=== PATIENT | female | born 1955 | race African-American/Black ===

== ENCOUNTER 2018-04-14 14:23 | Inpatient (IN) | payer MEDICARE, MEDICAID ==
[~2018-04-14] VITALS: Ht 165.1 cm; Wt 68.0 kg
[2018-04-14 14:57] VITALS: BP 188/100
[2018-04-14] MEDS ORDERED: DIAZEPAM10 MG ORAL (15:21)
[2018-04-14] MEDS ORDERED: CYCLOBENZAPRINE10 MG ORAL (15:21)
[2018-04-14] MEDS ORDERED: CATAPRES0.1 MG ORAL (15:21)
[2018-04-14] MEDS ORDERED: ZOFRAN ODT8 MG ORAL (15:21)
[2018-04-14] MEDS ORDERED: CARAFATE1 G1 ORAL (15:21)
[2018-04-14] MEDS ORDERED: DICLOFENAC SODI25 GM MC (15:22)
[2018-04-14] MEDS ORDERED: AMLODIPINE BESY10 MG ORAL (15:22)
[2018-04-14] MEDS ORDERED: LORazepam 1mg tab ORAL ONE (15:30)
--- NOTE | 2018-04-14 15:35 | Emergency Room Report ---
History of Present Illness General Chief Complaint: General Complaint Source: Patient Present Illness HPI 62-year-old female with a history of hypertension, high cholesterol, COPD, presents with intermittent right-sided facial numbness that started Wednesday which was 2 days ago. She reports she is having right facial numbness again, and it's been more persistent since 10 AM. She denies fevers, falls, focal weakness, slurred speech, blurred vision, numbness anywhere else in her right face. Allergies: Coded Allergies: OLYA INHIBITORS (Verified Allergy, Unknown, 04/14/18) Patient History Past Medical History: see triage record Reviewed Nursing Documentation: PMH: Agreed; PSxH: Agreed Nursing Documentation-PMH Past Medical History: No History, Except For Hx Hypertension: Yes Hx COPD: Yes Review of Systems All Other Systems: negative except mentioned in HPI Physical Exam Vital Signs Date Time Temp Pulse Resp B/P (MAP) Pulse Ox O2 Delivery O2 Flow Rate FiO2 04/14/18 14:40 98.1 70 14 201/101 100 Room Air Sp02 EP Interpretation: reviewed, normal General Appearance: no apparent distress, alert, non-toxic Head: normocephalic Eyes: bilateral eye normal inspection, bilateral eye PERRL, bilateral eye EOMI ENT: normal ENT inspection, hearing grossly normal, normal pharynx, no angioedema, normal voice, moist mucus membranes Neck: normal inspection, full range of motion, supple, supple/symm/no masses Respiratory: chest non-tender, lungs clear, normal breath sounds, no rhonchi, no respiratory distress, no retraction, no accessory muscle use, no wheezing, chest symmetrical, palpation of chest normal Cardiovascular #1: normal peripheral pulses, regular rate, rhythm, no edema, no gallop, no JVD, no murmur, no rub Cardiovascular #2: 2+ radial (R), 2+ radial (L) Gastrointestinal: normal inspection, non tender, soft, no mass, no guarding, no rebound Rectal: deferred Genitourinary: normal inspection, no CVA tenderness Musculoskeletal: back normal, gait/station normal, normal range of motion, non- tender, no calf tenderness Neurologic: alert, responsive, senior staff consultant III-XII nml as tested - Patient reports decreased sensation subjectively on right face, but no facial droop is notable and she has sensation intact to light touch over the face bilaterally, motor strength/tone normal, sensory intact, speech normal Psychiatric: judgement/insight normal, memory normal, mood/affect normal Skin: normal color, no rash, warm/dry, normal turgor Lymphatic: no adenopathy Medical Decision Making Diagnostic Impression: Primary Impression: TIA (transient ischemic attack) ER Course Patient found to be hypertensive, was given a milligram of Ativan she was intermittent in the agitated, this improved her blood pressure greatly, she was given aspirin, her exam is fairly unremarkable with a stroke scale of 0, but with subjective numbness to right face, but is going on intermittent since Wednesday, patient will be admitted for possible TIA. Given ASA 325. EKG Diagnostic Results EKG Time: 14:53 EP Interpretation: No ST segment changes or T wave inversion Rate: normal Rhythm: NSR ST Segments: no acute changes ASA given to the pt in ED: Yes Rhythm Strip Diag. Results Rhythm Strip Time: 15:33 EP Interpretation: yes Rate: 64 Rhythm: NSR, no PVC's, no ectopy Chest X-Ray Diagnostic Results Chest X-Ray Diagnostic Results : Chest X-Ray Ordered: Yes # of Views/Limited/Complete: 1 View Indication: Other - tia EP Interpretation: Yes Interpretation: no consolidation, no effusion, no acute cardiopulmonary disease Impression: No acute disease Electronically Signed by: Ashley Nick MD Other X-Ray Diagnostic Results Other X-Ray Diagnostic Results : X-Ray ordered: cxr CT/MRI/US Diagnostic Results CT/MRI/US Diagnostic Results : Imaging Test Ordered: ct head Impression No acute disease Reevaluation Time: 16:09 Last Vital Signs Date Time Temp Pulse Resp B/P (MAP) Pulse Ox O2 Delivery O2 Flow Rate FiO2 04/14/18 14:57 70 14 Room Air 04/14/18 14:57 98.1 188/100 100 Status: improved Disposition: ADMITTED INPATIENT Admit Decision Time: 16:10 Condition: Stable ASHLEY NICK M.D Apr 14, 2018 15:35
[2018-04-14 15:37] LABS: APPEARANCE,URINE CLEAR; BILIRUBIN, URINE NEGATIVE (NEGATIVE); COLOR,URINE PALE YELLOW; GLUCOSE, URINE (UA) NEGATIVE (NEGATIVE); KETONES,URINE NEGATIVE (NEGATIVE); LEUKOCYTE ESTERASE ,URINE NEGATIVE (NEGATIVE); NITRITE,URINE NEGATIVE (NEGATIVE); PH,URINE 7 (4.5-8.0); PROTEIN,URINE NEGATIVE (NEGATIVE); UROBILINOGEN,URINE NORMAL MG/DL (0.0-1.0)
[2018-04-14 15:39] LABS: BASOPHILS % (AUTO) 1.3 % (0.0-2.0); EOSINOPHILS % (AUTO) 6.6 % (0.0-3.0); HEMATOCRIT 35.4 % (37.0-47.0); HEMOGLOBIN 12.5 G/DL (12.0-16.0); LYMPHOCYTES % (AUTO) 45.1 % (20.0-45.0); MEAN CORPUSCULAR VOLUME 79 FL (80-99); MONOCYTES % (AUTO) 10.2 % (1.0-10.0); NEUTROPHILS % (AUTO) 36.8 % (45.0-75.0); PLATELET COUNT 251 K/UL (150-450); RED BLOOD COUNT 4.48 M/UL (4.20-5.40); RED CELL DISTRIBUTION WIDTH 11.8 % (11.6-14.8); WHITE BLOOD COUNT 5.2 K/UL (4.8-10.8)
[2018-04-14 15:49] LABS: ANION GAP 8 mmol/L (5-15); BLOOD UREA NITROGEN 17 mg/dL (7-18); CALCIUM 9.5 MG/DL (8.5-10.1); CARBON DIOXIDE 29 MMOL/L (21-32); CHLORIDE 105 MMOL/L (98-107); CREATININE 0.9 MG/DL (0.55-1.30); POTASSIUM 3.5 MMOL/L (3.5-5.1); SODIUM 142 MMOL/L (136-145)
[2018-04-14 15:55] LABS: ALANINE AMINOTRANSFERASE 18 U/L (12-78); ALBUMIN 3.8 G/DL (3.4-5.0); ALBUMIN/GLOBULIN RATIO 0.8 (1.0-2.7); ALKALINE PHOSPHATASE 99 U/L (46-116); ASPARTATE AMINO TRANSFERASE 23 U/L (15-37); BILIRUBIN,TOTAL 0.2 MG/DL (0.2-1.0); CHOLESTEROL 198 MG/DL (< 200); HDL CHOLESTEROL 54 MG/DL (40-60); TRIGLYCERIDES 119 MG/DL (30-150)
--- NOTE | 2018-04-14 16:02 | Diagnostic Imaging Report ---
Indication: Right-sided facial numbness for 2 days, worse this morning Technique: Continuous helical CT scanning of the head was performed without intravenous contrast material. Axial and coronal 5 mm sections were generated. Radiation dose was minimized using automated exposure control Dose: Total Dose Length Product - DLP 1302.[address] Dose Index - CTDIvol(s) 70.38 mGy. Comparison: none Findings: The ventricular system is normal in size and configuration. There is no shift of midline structures. No abnormal extra-axial fluid collections are noted. There is no evidence of intracerebral bleeding. Small lacunar infarcts versus symmetric foci of periventricular deep white matter low-attenuation are seen in the bilateral centrum anterior tran radiata. Impression: Mild chronic deep white matter ischemic changes, as described Negative for acute intracranial bleed or mass effect. The CT scanner at [facility] is accredited by the [employer] and the scans are performed using protocols designed to limit radiation exposure to as low as reasonably achievable to attain images of sufficient resolution adequate for diagnostic evaluation.
--- NOTE | 2018-04-14 17:23 | Diagnostic Imaging Report ---
Indication: Chest pain Technique: One view of the chest Comparison: 06/07/2005 Findings: Elongated calcified aorta. Heart size is borderline enlarged. Atelectasis is seen in the left lung base. Impression: Left basilar atelectasis. No acute process
[2018-04-14 18:15] VITALS: BP 156/97
[2018-04-14] MEDS ORDERED: LUBRICANT 0.5-015 ML OP (18:39)
[2018-04-14] MEDS ORDERED: TRAMADOL HCL50 MG ORAL (18:39)
[2018-04-14] MEDS ORDERED: ATENOLOL-CHLOR1 EAC1 ORAL (18:39)
[2018-04-14] MEDS ORDERED: ATENOLOL25 MG ORAL (18:39)
[2018-04-14] MEDS ORDERED: NORCO 10-325 T1 EACH ORAL (18:39)
[2018-04-14] MEDS ORDERED: PENNSAID112 GM TP (18:39)
[2018-04-14] MEDS ORDERED: SYMBICORT 80-10.2 G1 IH (18:39)
[2018-04-14 20:20] VITALS: BP 154/71
[2018-04-14 20:30] VITALS: BP 144/96
[2018-04-14] MEDS ORDERED: Gadavist 7.5mMol/7.5ml vial IV PRN (22:15)
[2018-04-14] MEDS ORDERED: Atenolol 25mg tab ORAL ONE (22:15)
[2018-04-14] MEDS ORDERED: traMADol 50mg tab ORAL PRN (22:15)
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
[2018-04-14] MEDS: Aspirin EC 81mg tab ORAL SCH (23:29)
[2018-04-15] VITALS (7 sets, daily range): BP systolic 96–168; BP diastolic 61–97
[2018-04-15] MEDS: NS w/KCl 20mEq 1,000 ML IV SCH ×3 (00:12→18:30)
[2018-04-15] MEDS: HYDROcodone/Acetamin 10/325 tab ORAL PRN ×3 (02:18→17:23)
[2018-04-15] MEDS: Aspirin EC 81mg tab ORAL SCH (08:34)
[2018-04-15] MEDS ORDERED: Atenolol 25mg tab ORAL SCH (09:00)
[2018-04-15 09:30] LABS: BASOPHILS % (AUTO) 1.1 % (0.0-2.0); EOSINOPHILS % (AUTO) 6.9 % (0.0-3.0); HEMATOCRIT 37.8 % (37.0-47.0); HEMOGLOBIN 12.9 G/DL (12.0-16.0); LYMPHOCYTES % (AUTO) 42.7 % (20.0-45.0); MEAN CORPUSCULAR VOLUME 81 FL (80-99); MONOCYTES % (AUTO) 9.6 % (1.0-10.0); NEUTROPHILS % (AUTO) 39.7 % (45.0-75.0); PLATELET COUNT 250 K/UL (150-450); RED BLOOD COUNT 4.67 M/UL (4.20-5.40)
[2018-04-15 09:48] LABS: ALANINE AMINOTRANSFERASE 18 U/L (12-78); ALBUMIN 3.6 G/DL (3.4-5.0); ALBUMIN/GLOBULIN RATIO 0.8 (1.0-2.7); ALKALINE PHOSPHATASE 92 U/L (46-116); ANION GAP 9 mmol/L (5-15); ASPARTATE AMINO TRANSFERASE 21 U/L (15-37); BILIRUBIN,TOTAL 0.4 MG/DL (0.2-1.0); BLOOD UREA NITROGEN 14 mg/dL (7-18); CALCIUM 9.3 MG/DL (8.5-10.1); CARBON DIOXIDE 26 MMOL/L (21-32); CHLORIDE 105 MMOL/L (98-107); CREATININE 0.7 MG/DL (0.55-1.30); POTASSIUM 3.7 MMOL/L (3.5-5.1); SODIUM 140 MMOL/L (136-145)
--- NOTE | 2018-04-15 11:31 | Diagnostic Imaging Report ---
Indication: Right-sided facial numbness, bilateral hearing loss Technique: sagittal T1 fast spin echo, axial T1 and T2 FLAIR PROPELLER, axial T2 FS PROPELLER, T2* GRE, axial diffusion weighted images, post contrast axial and coronal T1 FLAIR PROPELLER images. ADC and exponential ADC maps generated Comparison: none Findings: . No abnormal areas of restricted diffusion to suggest acute infarction. No acute hemorrhage or edema. No mass effect nor midline shift. No abnormal contrast enhancement. Normal size ventricles and extra axial CSF spaces. No unusual contrast enhancement. There are small bilateral basal ganglia lacunar infarcts noted. The vascular flow voids are preserved.. Visualized orbits and sinuses are unremarkable. . Impression: Small old bilateral basal ganglia lacunar infarcts Negative for acute intracranial bleed, mass effect, contrast enhancement, or infarct
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
[2018-04-15] MEDS ORDERED: traMADol 50mg tab ORAL PRN (18:30)
[2018-04-15] MEDS ORDERED: Ondansetron ODT 8mg tab ORAL PRN (19:00)
[2018-04-15] MEDS: Heparin 5000 units/ml inj SUBQ SCH ×2 (20:35→20:41)
[2018-04-15] MEDS ORDERED: Heparin 5000 units/ml inj SUBQ SCH (21:00)
[2018-04-15] MEDS ORDERED: Gadavist 7.5mMol/7.5ml vial IV PRN (22:15)
[2018-04-16] VITALS: BP 138/82
--- NOTE | 2018-04-16 00:15 | Progress Note ---
CARDIOLOGY PROGRESS NOTE DATE: 04/15/2018 SUBJECTIVE: The patient's condition remains unchanged. She still has recurring numbness and tingling of her right facies. She has no difficulty swallowing. No difficulty with speech and no focal weakness. Monitored rhythm is sinus. OBJECTIVE: VITAL SIGNS: Blood pressure 155/97 with a single low range of 96/61 recorded, heart rate 57 to 83, respiratory rate 20, and afebrile. HEENT: She has no facial asymmetry. No motor deficits. Speech fluent. NECK: Supple. No bruits. LUNGS: Clear. CARDIAC: Regular. Normal S1, S2 with a fourth heart sound. ABDOMEN: Soft. EXTREMITIES: No edema. IMAGING: MRI of the brain revealed small old bilateral basal ganglia infarct, but no acute process. LABORATORY DATA: Labs noted. White count 5, hemoglobin 12.9. Folate 7.5, B12 749. TSH 0.279. Chemistry panel normal. IMPRESSION: 1. Right facial numbness may be due to acute neuropathic process involving the facial nerve. 2. Cerebrovascular disease with prior cerebrovascular accident. 3. Labile blood pressure with hypertensive heart disease. 4. Type 2 diabetes mellitus. 5. Hyperlipidemia. PLAN: 1. Anti-platelet therapy. 2. Followup carotid duplex study. 3. Optimize blood pressure control. 4. Consider re-attempted statin therapy, although it was not tolerated in the past. 5. Neuro checks. Kapil Conroy M.D. DR: BERNADINE JOB#: [id number] CC:
[2018-04-16] MEDS: HYDROcodone/Acetamin 10/325 tab ORAL PRN ×2 (02:44→11:02)
[2018-04-16 04:00] VITALS: BP 131/92
[2018-04-16] MEDS: NS w/KCl 20mEq 1,000 ML IV SCH (07:50)
[2018-04-16] MEDS ORDERED: NORVASC10 MG ORAL (07:58)
[2018-04-16] MEDS ORDERED: FAMOTIDINE20 MG ORAL (07:58)
[2018-04-16] MEDS ORDERED: ATENOLOL25 MG ORAL (07:58)
[2018-04-16] MEDS ORDERED: ASPIRIN EC81 MG ORAL (07:58)
[2018-04-16 08:00] VITALS: BP 151/90
[2018-04-16] MEDS ORDERED: Atenolol 25mg tab ORAL SCH (09:00)
[2018-04-16] MEDS: Heparin 5000 units/ml inj SUBQ SCH (09:00)
[2018-04-16] MEDS ORDERED: Aspirin EC 81mg tab ORAL SCH (09:00)
--- NOTE | 2018-04-16 09:00 | Discharge Summary ---
DATE OF ADMISSION: 04/14/2018 DATE OF DISCHARGE: 04/16/2018 ADMITTING DIAGNOSES: 1. Transient ischemic attack. 2. History of hypertension. 3. Chronic obstructive pulmonary disease. 4. History of anxiety. 5. History of chronic lower back pain. DISCHARGE DIAGNOSES: 1. Transient ischemic attack. 2. History of hypertension. 3. Chronic obstructive pulmonary disease. 4. History of anxiety. 5. History of chronic lower back pain. HOSPITAL COURSE: The patient is a pleasant 62-year-old female who presented with complaints of intermittent episodes of right-sided facial numbness. She was admitted for possible TIA. Her CT scan was negative. She did have an MRI that showed old strokes, but nothing acute. She was placed on antiplatelet therapy. She was noted to have elevated LDL, was placed on pravastatin. She does have a history of intolerance to statins, but we will re-attempt statin treatment again with monitoring for symptoms and a CK level in the office. The patient also had an echo, which showed no evidence of any thrombus and a carotid duplex showed no disease. The patient will be discharged to follow up in several days in the office. DISCHARGE MEDICATIONS: Please see discharge list for discharge medications. DIET: Cardiac diet. ACTIVITY: Ad-rina. Damian Morton M.D. DR: AILIN JOB#: [id number] CC:
[2018-04-16 11:52] VITALS: BP 168/91
--- NOTE | 2018-04-16 14:41 | Cardiology Report ---
APPROVED REPORT EXAM: Two-dimensional and M-mode echocardiogram with Doppler and color Doppler. INDICATION CVA M-Mode DIMENSIONS IVSd2.0 (0.7-1.1cm)Left Atrium (MM)4.0 (1.6-4.0cm) LVDd3.0 (3.5-5.6cm)Aortic Root3.2 (2.0-3.7cm) PWd1.7 (0.7-1.1cm)Aortic Cusp Exc.1.7 (1.5-2.0cm) LVDs1.5 (2.5-4.0cm) PWs2.3 cm Normal left ventricular chamber size, systolic function and wall motion. Left ventricular ejection fraction estimated to be 60 %. Moderate left ventricular hypertrophy. No evidence of pericardial effusion. All other cardiac chamber sizes are within normal limits. Mild focal aortic valve sclerosis with adequate cusp excursion. Thickened mitral valve leaflets with normal excursion. Mild mitral annulus and aortic root calcification. Normal pulmonic valve structure. Normal tricuspid valve structure. IVC dilated at 2.2 cm with physiological collapse. A color flow and spectral Doppler study was performed and revealed: Mild aortic insufficiency. Mild mitral regurgitation. Mitral diastolic velocities suggest mild left ventricular diastolic dysfunction (Grade I). Trace tricuspid regurgitation. Tricuspid systolic velocities suggests peak right ventricular systolic pressure of 31 mmHg. Trace pulmonic regurgitation present.
[2018-04-16 15:17] VITALS: BP 150/91
--- NOTE | 2018-04-16 22:15 | Progress Note ---
DATE: 04/16/2018 CARDIOLOGY PROGRESS NOTE SUBJECTIVE: The patient continues to feel better and she has minimal numbness on her right cheek. No motor deficit. No difficulty chewing, swallowing, or speaking. Her echocardiogram revealed mild degenerative valve disease with regurgitation, but normal ejection fraction and no thrombus. Carotid duplex revealed no flow-limiting disease of concern and her MRI as noted revealed old lacunar infarcts. Her laboratories have been notable for an elevated LDL, but the patient is concerned about resuming statin drugs that she was intolerant to in the past and will reconsider this in the future. OBJECTIVE: VITAL SIGNS: Blood pressure 150/91, heart rate 65, respiratory rate 18, and afebrile. Earlier blood pressure was up to 175/101. LUNGS: Clear. CARDIAC: Regular. Normal S1, S2 with a fourth heart sound. ABDOMEN: Soft. EXTREMITIES: No edema. IMPRESSION: 1. Facial numbness. 2. Cerebrovascular disease, possible acute subcortical infarct. 3. Hypertensive heart disease with labile blood pressure. 4. Hyperlipidemia. 5. Folate deficiency. PLAN: 1. Outpatient followup. 2. Continued anti-platelet therapy. 3. Folate replacement. 4. Low-fat diet. 5. Consideration for statin drug. 6. Continued up titration of antihypertensive as outpatient based on clinical parameters. 7. The patient is advised to return to the hospital urgently for new neurologic deficits. Kapil Conroy M.D. DR: SONIA JOB#: [id number] CC:
--- NOTE | 2018-04-18 13:10 | Diagnostic Imaging Report ---
APPROVED REPORT CPT Code: 17052 Vascular Symptoms CVA/TIA: CAROTID (BILATERAL) - Imaging reveals no significant plaque within the right and left extracranial carotid arteries. The Doppler spectral flow analysis is within normal limits throughout the extracranial carotid arteries bilaterally. VERTEBRAL- The vertebral arteries are within normal limits.
== END 2018-04-16 15:50 | disposition home health service (06) | DRG 69 ==
LOC: EMR 15:50 → 2E 16:06 → EDBEDREQ 19:11 → 4E 04-15 18:03
DX: G45.9 Transient cerebral ischemic attack, unspecified (principal); I16.0 Hypertensive urgency; I11.9 Hypertensive heart disease without heart failure; J44.9 Chronic obstructive pulmonary disease, unspecified; F41.9 Anxiety disorder, unspecified; G89.29 Other chronic pain; M54.5 Low back pain; M19.90 Unspecified osteoarthritis, unspecified site; E78.5 Hyperlipidemia, unspecified; Z87.891 Personal history of nicotine dependence; Z88.8 Allergy status to other drugs, medicaments and biological substances; I67.2 Cerebral atherosclerosis; G51.9 Disorder of facial nerve, unspecified; E11.9 Type 2 diabetes mellitus without complications; E53.8 Deficiency of other specified B group vitamins
CPT/HCPCS: 36415; 70450; 70553; 71045; 80053; 80061; 81003; 82607; 82746; 84443; 84484; 85025; 85610; 85730; 93005; 93306; 93880; 94640; 94664; 99284; A9585

== ENCOUNTER 2018-07-23 13:26 | Emergency (ER) | payer MEDICARE, MEDICAID ==
[~2018-07-23] VITALS: Ht 165.1 cm; Wt 72.6 kg
[~2018-07-23 13:26] MED LIST: AMLODIPINE BESY10 MG ORAL; ASPIRIN EC81 MG ORAL; ATENOLOL-CHLOR1 EAC1 ORAL; ATENOLOL25 MG ORAL; CARAFATE1 G1 ORAL; CATAPRES0.1 MG ORAL; CYCLOBENZAPRINE10 MG ORAL; DIAZEPAM10 MG ORAL; DICLOFENAC SODI25 GM MC; FAMOTIDINE20 MG ORAL; LUBRICANT 0.5-015 ML OP; NORCO 10-325 T1 EACH ORAL; NORVASC10 MG ORAL; PENNSAID112 GM TP; SYMBICORT 80-10.2 G1 IH; TRAMADOL HCL50 MG ORAL; ZOFRAN ODT8 MG ORAL
--- NOTE | 2018-07-23 14:14 | Emergency Room Report ---
History of Present Illness General Chief Complaint: Laceration Present Illness HPI 62-year-old female patient presents the ER complaining of laceration on left thumb. Reports he is right-hand dominant. Patient states that she was using a box person to open a box when actually slipped and cut her left hand. Denies taking any blood thinner medications other than aspirin. Denies syncope or dizziness. States bleeding well controlled at this time with gauze however was "bleeding a lot initially". Denies loss of range of motion. Denies numbness or tingling. Denies other aggravating or relieving factors. Reports she is up- to-date on her tetanus vaccinations. Allergies: Coded Allergies: OLYA INHIBITORS (Verified Allergy, Unknown, 04/14/18) Swelling in the toungue, mouth Patient History Past Medical History: see triage record Last Menstrual Period: N/A Reviewed Nursing Documentation: PMH: Agreed; PSxH: Agreed Nursing Documentation-PMH Hx Hypertension: Yes Hx COPD: Yes Review of Systems All Other Systems: negative except mentioned in HPI Physical Exam Vital Signs Date Time Temp Pulse Resp B/P (MAP) Pulse Ox O2 Delivery O2 Flow Rate FiO2 07/23/18 14:07 98.2 58 18 149/83 100 Room Air Sp02 EP Interpretation: reviewed, normal General Appearance: well appearing, no apparent distress, alert, GCS 15, non- toxic Head: normocephalic, atraumatic Eyes: bilateral eye normal inspection, bilateral eye PERRL ENT: hearing grossly normal, normal pharynx, no angioedema, normal voice, uvula midline, moist mucus membranes Neck: full range of motion Respiratory: lungs clear, normal breath sounds, no rhonchi, no respiratory distress, no accessory muscle use, no wheezing, speaking full sentences Cardiovascular #1: regular rate, rhythm, no edema Cardiovascular #2: 2+ radial (R), 2+ radial (L) Musculoskeletal: back normal, digits/nails normal, gait/station normal, normal range of motion, non-tender, other - No snuffbox tenderness, NVI, no tendon exposure, Neurologic: alert, oriented x3, responsive, motor strength/tone normal, sensory intact Skin: laceration - Left thumb: 2 cm superficial linear laceration, wound edges well approximated, bleeding well controlled, no surrounding erythema or edema, no pulsating blood Procedures Laceration/Wound Repair Laceration/Wound Repair : Consent: Verbal Wound Location: upper extremity - Left thumb Wound's Depth, Shape: superficial, linear Wound Length (cm): 1 Wound Explored: contaminated Irrigated w/ Saline (ccs): 10 Betadine Prep?: Yes Wound Debrided: extensive Wound Repaired With: Dermabond Layer Closure?: No Sterile Dressing Applied?: No Splint Applied?: No Sling Applied?: No Patient Tolerated: Well Complications: None Medical Decision Making PA Attestation Dr. Dyson is my supervising Physician whom patient management has been discussed with. Diagnostic Impression: Primary Impression: Laceration ER Course Pt presents to ED c/o laceration on left thumb. DDX considered but are not limited to laceration, abrasion, contusion, cellulitis. VITAL SIGNS are WNL, patient is afebrile ED INTERVENTIONS: Wound was cleaned and irrigated using copius normal saline. Laceration repaired using Dermabond. See procedure note. Patient reports understanding and agreement to treatment plan. Keep wound clean and dry. Followup with PCP in 2-3 days for wound check. ER precautions given. No surrounding erythema or edema, wound well irrigated with copious amounts normal saline, low suspicion for infection, does not require oral antibiotics at this time. Advised patient on use of topical antibiotics. Return to ER if signs of infection present.. DISCHARGE: Rx provided for Bacitracin Rx provided for Tylenol At this time pt is stable for d/c to home. Patient resting comfortably, in no acute distress, nontoxic appearing, talking without difficulty. Will provide with patient care instructions and any necessary prescriptions. Patient to take medication as instructed. Care plan and follow-up instructions provided. Work note provided to patient. Patient questions asked and answered. Patient instructed to follow-up with primary care provider for wound check and suture removal. ER precautions given. Patient instructed to return to ER immediately for any new or worsening of symptoms. - Please note that this Emergency Department Report was dictated using eSeekerscoll[employer] mechanic technology software, occasionally this can lead to erroneous entry secondary to interpretation by the dictation equipment. Last Vital Signs Date Time Temp Pulse Resp B/P (MAP) Pulse Ox O2 Delivery O2 Flow Rate FiO2 07/23/18 14:07 98.2 58 18 149/83 100 Room Air Status: improved Disposition: HOME, SELF-CARE Condition: Stable Scripts Acetaminophen* (TYLENOL EXTRA STRENGTH*) 500 Mg Tablet 500 MG ORAL Q8H PRN for Prn Headache/Temp > 101, #30 TAB 0 Refills Prov: Herb Mayen 07/23/18 Bacitracin/Polymyxin B Sulfate (BACITRACIN-POLYMYXIN OINTMENT) 28.35 Gm Oint...g. 1 APPLIC TP BID, #28 GM Prov: Herb Mayen 07/23/18 Patient Instructions: Nonsutured Laceration Care Additional Instructions: Patient instructed to follow-up with primary care provider in 2-3 days for wound check Apply bacitracin to help reduce appearance of scar once Dermabond has worn off. Take medications as directed. Keep wound clean and dry. Patient questions asked and answered. ER precautions given, patient instructed to return to ER immediately for any new or worsening of symptoms. Hreb Mayen Jul 23, 2018 14:14
[2018-07-23 14:27] VITALS: BP 135/79
--- NOTE | 2018-07-23 14:28 | NUR ---
ED Nurse Note: Pt came in c/o laceration on L thumb, got cut on tape deck installer prior to arrival. Pain 5/10 darlene. no active bleeding. Aox4, VSS. Will cont to monitor.
[2018-07-23] MEDS ORDERED: TYLENOL EXTRA500 MG ORAL (14:47)
[2018-07-23] MEDS ORDERED: BACITRACIN-P28.35 GM TP (14:47)
--- NOTE | 2018-07-23 14:58 | NUR ---
ED Nurse Note: PT A/O X4, STATED UNDERSTANDING OF DC INSTRUCTIONS AND EDUCATION ON NEW MEDICATIONS. AMBULATES WITH STEADY GAIT, REPORTS NO PAIN AT THIS TIME.
== END 2018-07-23 15:00 | disposition home or self-care (01) ==
LOC: EMR 14:21
DX: S61.012A Laceration without foreign body of left thumb without damage to nail, initial encounter (principal); I10 Essential (primary) hypertension; J44.9 Chronic obstructive pulmonary disease, unspecified; W26.8XXA Contact with other sharp object(s), not elsewhere classified, initial encounter
CPT/HCPCS: 99282

== ENCOUNTER 2018-07-27 10:03 | Outpatient (CLI) | payer MEDICARE, MEDICAID ==
[~2018-07-27 10:03] MED LIST changes: +BACITRACIN-P28.35 GM TP; +TYLENOL EXTRA500 MG ORAL
--- NOTE | 2018-07-28 09:32 | Diagnostic Imaging Report ---
Indication: Knee pain Technique: 3 views of the left knee Comparison: None Findings: There is a small superior pole patellar osteophyte. There are small medial and lateral osteophytes. No acute fractures. No dislocations. The joint spaces are preserved. Impression: No acute process
--- NOTE | 2018-07-28 09:32 | Diagnostic Imaging Report ---
Indication: Back pain Technique: 3 views of the lumbar spine Comparison: None Findings: There is slight anterior height loss of the L5 vertebral body. Remaining vertebral body heights are preserved. No acute fractures otherwise. There is degenerative disc narrowing at L2-3, L3-4, and L5-S1. There is mild lumbar dextro scoliotic deformity. Bony alignment is otherwise normal. The pedicles are intact. Sacral arches are preserved. Sacroiliac joint spaces are preserved. There are cholecystectomy clips. Included extra spinal soft tissues are unremarkable Impression: Slight height loss of the L5 vertebral body. Suspect on the basis of degenerative remodeling, mild mild compression fracture deformity, acuity indeterminate, also possible. Consider MRI to better characterize if clinically relevant No other acute bony trauma Degenerative changes as described above
--- NOTE | 2018-07-28 09:32 | Diagnostic Imaging Report ---
Indication: Pain Technique: 3 views of the left ankle Comparison: none Findings: Anterior surgical plate and screws are seen reducing old healed distal tibial fracture. Hardware appears to be intact an well-positioned.. No acute fractures. No dislocations. There are vascular calcifications noted. Impression: Postsurgical and posttraumatic changes, as described No acute bony trauma
--- NOTE | 2018-07-28 09:32 | Diagnostic Imaging Report ---
Indication: Right hip pain Technique: 2 views of the right hip Comparison: none Findings: There are mild degenerative changes of the right hip joint; the joint spaces are largely preserved, but there is considerable proliferative change. No acute fractures. No dislocations. The bones are osteoporotic. Soft tissues are unremarkable Impression: Mild degenerative changes. No acute bony trauma
--- NOTE | 2018-07-28 09:32 | Diagnostic Imaging Report ---
Indication: Right ankle pain Technique: 3 views of the ankle Comparison: none Findings: Bones are osteoporotic. No acute fractures. No dislocations. Large ossific opacity projects posterior to the calcaneus on the lateral view, May the sequela of prior injury or, more likely, a very large accessory ossicle. There is a small plantar spur. There is mild degenerative narrowing of the ankle joint. Impression: No acute bony trauma Findings as noted
--- NOTE | 2018-07-28 09:32 | Diagnostic Imaging Report ---
Indication: Pain Technique: 3 views right hand Comparison: none Findings: No definite acute fractures. No dislocations. There are fairly extensive degenerative changes of the distal interphalangeal joints, the first interphalangeal joint, the first carpometacarpal joint and lateral intercarpal joint. Bones appear osteoporotic. Impression: Degenerative changes as described No acute bony trauma
--- NOTE | 2018-07-28 09:32 | Diagnostic Imaging Report ---
Indication: Right knee pain Technique: 3 views of the right knee Comparison: None Findings: There is a small superior pole patellar osteophyte and a small medial osteophytes. No acute fractures. No dislocations. Joint spaces are preserved. No suprapatellar effusion. Impression: Minimal degenerative changes No acute bony trauma
== END 2018-07-27 12:03 | disposition home or self-care (01) ==
LOC: RAD 10:03
DX: M25.562 Pain in left knee (principal); M25.571 Pain in right ankle and joints of right foot; M25.541 Pain in joints of right hand; M25.551 Pain in right hip; M25.561 Pain in right knee; M54.9 Dorsalgia, unspecified
CPT/HCPCS: 72020

== ENCOUNTER 2019-03-07 08:18 | Outpatient (CLI) | payer MEDICARE, MEDICAID | END 2019-03-07 10:18 | disposition home or self-care (01) | LOC: CAT 08:18 | DX: R10.9 Unspecified abdominal pain (principal); R10.2 Pelvic and perineal pain | CPT/HCPCS: 74176 ==

== ENCOUNTER → 2019-03-09 | Outpatient (CLI) | payer MEDICARE, MEDICAID | END | disposition home or self-care (01) | LOC: CAT 08:37 | DX: R10.9 Unspecified abdominal pain (principal); R10.2 Pelvic and perineal pain ==

== ENCOUNTER → 2019-04-06 | Outpatient (CLI) | payer MEDICARE, MEDICAID ==
--- NOTE | 2019-04-06 13:16 | Diagnostic Imaging Report ---
Indication: Cough Comparison: 04/14/2018 2 views of the chest obtained. Findings: No definite infiltrate or pulmonary vascular congestion identified. The heart is relatively normal in size. The aorta is mildly enlarged consistent with atherosclerotic vascular disease. The bones are osteopenic. Impression: No acute disease
== END | disposition home or self-care (01) ==
LOC: RAD 07:37
DX: Z01.818 Encounter for other preprocedural examination (principal); R05 Cough; M85.80 Other specified disorders of bone density and structure, unspecified site
CPT/HCPCS: 71046

== ENCOUNTER 2019-07-29 07:08 | Emergency (ER) | payer MEDICARE, MEDICAID ==
[~2019-07-29] VITALS: Ht 165.1 cm; Wt 72.6 kg
[2019-07-29] MEDS ORDERED: DiphenhydrAMINE 50mg/ml Inj IM ONE (07:30)
--- NOTE | 2019-07-29 07:33 | Emergency Room Report ---
History of Present Illness General Chief Complaint: General Complaint Source: Patient Present Illness HPI Patient is a 63-year-old female brought in self after increased generalized body discomfort. She reports having taken some new medication which had caused her discomfort. She reports having pain throughout her body. Reports having generalized agitation. Reports taking pain medication regularly. Denies any recent trauma. Had not been vomiting or having diarrhea. COVID-19 risk:Travel to affect: No Allergies: Coded Allergies: OLYA INHIBITORS (Verified Allergy, Unknown, 04/14/18) Swelling in the toungue, mouth Patient History Past Medical History: see triage record Reviewed Nursing Documentation: PMH: Agreed; PSxH: Agreed Nursing Documentation-PMH Hx Cardiac Problems: No - arthritis, HYPERCHOLESTEROLEMIA Hx Hypertension: Yes Hx COPD: Yes Review of Systems All Other Systems: negative except mentioned in HPI Physical Exam Vital Signs Date Time Temp Pulse Resp B/P (MAP) Pulse Ox O2 Delivery O2 Flow Rate FiO2 07/29/19 07:18 98.1 79 20 149/66 (93) 95 Room Air General Appearance: well appearing, no apparent distress, alert, GCS 15 Head: normocephalic, atraumatic ENT: hearing grossly normal, normal voice Neck: full range of motion, supple Respiratory: chest non-tender, lungs clear, no respiratory distress, speaking full sentences Cardiovascular #1: normal inspection, regular rate, rhythm Gastrointestinal: normal inspection Musculoskeletal: no calf tenderness Neurologic: alert, motor strength/tone normal, body corporate manager III-XII nml as tested, normal gait Psychiatric: normal inspection, mood/affect normal Skin: normal inspection, no rash Medical Decision Making Diagnostic Impression: Primary Impression: Adverse reaction to antidepressant drug ER Course Patient presented for generalized body pain. Differential diagnosis include was not limited to dystonic reaction, substance abuse, akathisia among others. Patient has a benign exam and does not appear to require any imaging or laboratory testing at this time. Patient does not appear to have any evidence of systemic illness. She appears to be somewhat agitated and may have a having some akathetic reaction to some medication.Patient is advised to discontinue trazodone she feels this may be the offending agent. Patient was given Benadryl with improvement. She advised not to drive. the patient is advised to follow up with primary care doctor in 1-2 days. Patient is advised to return if any worsening condition or if any changes in status that are concerning. This report is dictated with [employer] corporate travel coordinator software which may occasionally lead to discrepancies related to use of this software. Labs Test 07/29/19 07:45 Urine Color Pale yellow Urine Appearance Clear Urine pH 7 (4.5-8.0) Urine Specific [place] 1.005 (1.005-1.035) Urine Protein Negative (NEGATIVE) Urine Glucose (UA) Negative (NEGATIVE) Urine Ketones Negative (NEGATIVE) Urine Blood Negative (NEGATIVE) Urine Nitrite Negative (NEGATIVE) Urine Bilirubin Negative (NEGATIVE) Urine Urobilinogen Normal MG/DL (0.0-1.0) Urine Leukocyte Esterase Negative (NEGATIVE) Urine Opiates Screen Negative (NEGATIVE) Urine Barbiturates Screen Negative (NEGATIVE) Phencyclidine (PCP) Screen Negative (NEGATIVE) Urine Amphetamines Screen Negative (NEGATIVE) Urine Benzodiazepines Screen Negative (NEGATIVE) Urine Cocaine Screen Negative (NEGATIVE) Urine Marijuana (THC) Screen Negative (NEGATIVE) Last Vital Signs Date Time Temp Pulse Resp B/P (MAP) Pulse Ox O2 Delivery O2 Flow Rate FiO2 07/29/19 07:18 98.1 79 20 149/66 (93) 95 Room Air Status: improved Disposition: HOME, SELF-CARE Condition: Stable Everton Worthington MD Jul 29, 2019 07:33
[2019-07-29 07:56] VITALS: BP 149/66
[2019-07-29 08:04] LABS: APPEARANCE,URINE CLEAR; BILIRUBIN, URINE NEGATIVE (NEGATIVE); COLOR,URINE PALE YELLOW; GLUCOSE, URINE (UA) NEGATIVE (NEGATIVE); KETONES,URINE NEGATIVE (NEGATIVE); LEUKOCYTE ESTERASE ,URINE NEGATIVE (NEGATIVE); NITRITE,URINE NEGATIVE (NEGATIVE); PH,URINE 7 (4.5-8.0); PROTEIN,URINE NEGATIVE (NEGATIVE); UROBILINOGEN,URINE NORMAL MG/DL (0.0-1.0)
[2019-07-29 08:38] VITALS: BP 149/66
== END 2019-07-29 08:38 | disposition home or self-care (01) ==
LOC: EMR 07:39
DX: T43.205A Adverse effect of unspecified antidepressants, initial encounter (principal); Y92.9 Unspecified place or not applicable; E78.00 Pure hypercholesterolemia, unspecified; M19.90 Unspecified osteoarthritis, unspecified site; J44.9 Chronic obstructive pulmonary disease, unspecified; I10 Essential (primary) hypertension; R52 Pain, unspecified; R45.1 Restlessness and agitation; Z88.8 Allergy status to other drugs, medicaments and biological substances
CPT/HCPCS: 80307; 81003; 96372; 99283; J1200

== ENCOUNTER → 2019-10-01 | Emergency (ER) | payer MEDICARE, MEDICAID ==
[~2019-10-01] VITALS: Ht 165.1 cm; Wt 61.2 kg
[~2019-10-01] MED LIST changes: +BENADRYL25 MG ORAL; +DiphenhydrAMINE 50mg/ml Inj IVP ONE; +Metoclopramide 10mg/2ml Inj IVP ONE; +OMEPRAZOLE40 M1 ORAL
--- NOTE | 2019-10-01 19:59 | NUR ---
ED Nurse Note: Pt ambulated to ED from home c/o SOB for several hours. Pt has hx of COPD and HTN. Pt is A&Ox4. Pt palced on model maker fiberglass. ERMD at bedside. EKG done. Pt was tested on for COVID no results yet
[2019-10-01 20:00] VITALS: BP 181/99
--- NOTE | 2019-10-01 20:02 | Emergency Room Report ---
History of Present Illness General Chief Complaint: Hypertension Source: Patient Present Illness HPI Patient presents with dyspnea and blood pressure out of control. She is on antihypertensives. She does smoke and recently stopped and has a patch. She has a history of COPD. She took an inhaler before coming in. She denies any fevers or chills. She has no productive cough. There is no chest pain. She did take a [place] 1 hour before coming in. Her blood pressure was 213 at home. Patient was seen by her doctor on and had labs done including COVID-19 antibody testing. He told her that all results were normal but the COVID-19 test was not resulted. Apparently clonidine was restarted on . No fevers, chills, sore throat, palpitations, nausea, vomiting, diarrhea, dysuria, abdominal pain, rashes, visual changes, dizziness, headache. She does complain of pressure in her head. She stopped smoking last week and has a patch on. 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 COVID-19 Screening: PUI COVID-19 COVID-19 Testing Source: blood testing Patient History Past Medical History: see triage record Past Surgical History: other - back and leg surgery Social History: Reports: smoking Social History Narrative from home Last Menstrual Period: n/a Reviewed Nursing Documentation: PMH: Agreed; PSxH: Agreed Nursing Documentation-PMH Hx Cardiac Problems: No - arthritis, HYPERCHOLESTEROLEMIA Hx Hypertension: Yes Hx COPD: Yes Physical Exam Vital Signs Date Time Temp Pulse Resp B/P (MAP) Pulse Ox O2 Delivery O2 Flow Rate FiO2 10/01/19 19:44 98.8 72 20 181/99 (126) 96 Room Air Sp02 EP Interpretation: reviewed, normal General Appearance: no apparent distress, GCS 15, non-toxic, other - Tearful Head: normocephalic Eyes: bilateral eye normal inspection, bilateral eye PERRL, bilateral eye EOMI ENT: normal pharynx, moist mucus membranes Neck: supple Respiratory: lungs clear, normal breath sounds Cardiovascular #1: regular rate, rhythm, no edema Cardiovascular #2: 2+ radial (R) Gastrointestinal: normal inspection, normal bowel sounds, non tender, no mass, non-distended Musculoskeletal: back normal, normal range of motion, no calf tenderness, gait/ station normal Neurologic: alert, oriented x3, grossly normal Psychiatric: anxious - Tearful Skin: no rash, warm/dry Medical Decision Making Diagnostic Impression: Primary Impression: Dyspnea Qualified Codes: R06.00 - Dyspnea, unspecified Additional Impression: Hypertension Qualified Codes: I10 - Essential (primary) hypertension ER Course Patient presents with dyspnea and hypertension. Differential includes acute myocardial infarction, hypertensive urgency versus malignant hypertension, anxiety, electrolyte imbalance, COVID-19 amongst others. Evaluation with EKG, chest x-ray and labs. Blood pressure will be repeated. Patient placed on satellite project site monitor. EKG with LVH. No injury. Chest x-ray COPD. Labs unremarkable except for minimal eosinophilia. Troponin negative. Patient complaining about pressure in her head. She denies having any pain. Reglan and Benadryl ordered. Improved after reglan and benadryl. BP still high. Catapres 0.2 given. Blood pressure improved and patient feeling much better. Discussed treatment plan with patient. Patient stable for outpatient observation and treatment. Laboratory Tests Test 10/01/19 20:00 White Blood Count 7.3 K/UL (4.8-10.8) Red Blood Count 3.98 M/UL (4.20-5.40) L Hemoglobin 11.3 G/DL (12.0-16.0) L Hematocrit 33.9 % (37.0-47.0) L Mean Corpuscular Volume 85 FL (80-99) Mean Corpuscular Hemoglobin 28.4 PG (27.0-31.0) Mean Corpuscular Hemoglobin Concent 33.4 G/DL (32.0-36.0) Red Cell Distribution Width 14.0 % (11.6-14.8) Platelet Count 242 K/UL (150-450) Mean Platelet Volume 8.1 FL (6.5-10.1) Neutrophils (%) (Auto) 51.0 % (45.0-75.0) Lymphocytes (%) (Auto) 32.9 % (20.0-45.0) Monocytes (%) (Auto) 10.5 % (1.0-10.0) H Eosinophils (%) (Auto) 4.4 % (0.0-3.0) H Basophils (%) (Auto) 1.2 % (0.0-2.0) Prothrombin Time 10.7 SEC (9.30-11.50) Prothrombin Time INR 1.0 (0.9-1.1) Activated Partial Thromboplast Time 26 SEC (23-33) Urine Color Pale yellow Urine Appearance Clear Urine pH 7 (4.5-8.0) Urine Specific [place] 1.005 (1.005-1.035) Urine Protein Negative (NEGATIVE) Urine Glucose (UA) Negative (NEGATIVE) Urine Ketones Negative (NEGATIVE) Urine Blood Negative (NEGATIVE) Urine Nitrite Negative (NEGATIVE) Urine Bilirubin Negative (NEGATIVE) Urine Urobilinogen Normal MG/DL (0.0-1.0) Urine Leukocyte Esterase Negative (NEGATIVE) Sodium Level 144 MMOL/L (136-145) Potassium Level 3.7 MMOL/L (3.5-5.1) Chloride Level 105 MMOL/L (98-107) Carbon Dioxide Level 29 MMOL/L (21-32) Anion Gap 10 mmol/L (5-15) Blood Urea Nitrogen 21 mg/dL (7-18) H Creatinine 1.2 MG/DL (0.55-1.30) Estimated Glomerular Filtration Rate 54.7 mL/min (>60) Glucose Level 99 MG/DL (74-106) Calcium Level 9.3 MG/DL (8.5-10.1) Ferritin 47 NG/ML (8-388) Total Bilirubin 0.2 MG/DL (0.2-1.0) Aspartate Amino Transferase (AST) 25 U/L (15-37) Alanine Aminotransferase (ALT) 26 U/L (12-78) Alkaline Phosphatase 65 U/L (46-116) Lactate Dehydrogenase 233 U/L (81-234) Total Creatine Kinase 218 U/L (26-308) Troponin I 0.011 ng/mL (0.000-0.056) Pro-B-Type Natriuretic Peptide 765 pg/mL (0-125) H Total Protein 7.2 G/DL (6.4-8.2) Albumin 4.0 G/DL (3.4-5.0) Globulin 3.2 g/dL Albumin/Globulin Ratio 1.3 (1.0-2.7) Serum Alcohol < 3 mg/dL EKG Diagnostic Results Rate: normal Rhythm: NSR ST Segments: no acute changes - Left atrial enlargement no acute changes Rhythm Strip Diag. Results EP Interpretation: yes Rhythm: NSR, no PVC's, no ectopy Chest X-Ray Diagnostic Results Chest X-Ray Diagnostic Results : Chest X-Ray Ordered: Yes # of Views/Limited/Complete: 1 View Indication: Shortness of Breath EP Interpretation: Yes Interpretation: no effusion, no pneumothorax, other - basilar atelectasis Impression: Other Electronically Signed by: Electronically signed by Kapil Dyson MD Final BP reported to hi 150/83. Status: improved Disposition: HOME, SELF-CARE Condition: Improved Scripts Diphenhydramine Hcl* (BENADRYL*) 25 Mg Capsule 25 MG ORAL Q6H PRN for congestion or pressure, #14 CAP Prov: Kapil Dyson MD 10/01/19 Kapil Dyson MD October 01, 2019 20:02
--- NOTE | 2019-10-01 20:11 | Diagnostic Imaging Report ---
EXAM: XR Chest, 1 View CLINICAL HISTORY: DYSPNEA TECHNIQUE: Frontal view of the chest. COMPARISON: Chest x-ray 04/06/2018. FINDINGS: Lungs: Atelectasis/scarring within the lingula is unchanged. No consolidation. No interstitial edema. Pleural space: No pleural effusion. No pneumothorax. Heart: Unremarkable. No cardiomegaly. IMPRESSION: No acute cardiopulmonary abnormality.
[2019-10-01 20:31] LABS: APPEARANCE,URINE CLEAR; BASOPHILS % (AUTO) 1.2 % (0.0-2.0); BILIRUBIN, URINE NEGATIVE (NEGATIVE); COLOR,URINE PALE YELLOW; EOSINOPHILS % (AUTO) 4.4 % (0.0-3.0); GLUCOSE, URINE (UA) NEGATIVE (NEGATIVE); HEMATOCRIT 33.9 % (37.0-47.0); HEMOGLOBIN 11.3 G/DL (12.0-16.0); KETONES,URINE NEGATIVE (NEGATIVE); LEUKOCYTE ESTERASE ,URINE NEGATIVE (NEGATIVE); LYMPHOCYTES % (AUTO) 32.9 % (20.0-45.0); MEAN CORPUSCULAR VOLUME 85 FL (80-99); MONOCYTES % (AUTO) 10.5 % (1.0-10.0); NITRITE,URINE NEGATIVE (NEGATIVE); PLATELET COUNT 242 K/UL (150-450); PROTEIN,URINE NEGATIVE (NEGATIVE); RED BLOOD COUNT 3.98 M/UL (4.20-5.40); UROBILINOGEN,URINE NORMAL MG/DL (0.0-1.0); WHITE BLOOD COUNT 7.3 K/UL (4.8-10.8)
[2019-10-01 20:36] LABS: PH,URINE 7 (4.5-8.0)
[2019-10-01 20:40] LABS: ANION GAP 10 mmol/L (5-15); BLOOD UREA NITROGEN 21 mg/dL (7-18); CALCIUM 9.3 MG/DL (8.5-10.1); CARBON DIOXIDE 29 MMOL/L (21-32); CHLORIDE 105 MMOL/L (98-107); CREATININE 1.2 MG/DL (0.55-1.30); POTASSIUM 3.7 MMOL/L (3.5-5.1); SODIUM 144 MMOL/L (136-145)
[2019-10-01 21:00] LABS: ALANINE AMINOTRANSFERASE 26 U/L (12-78); ALBUMIN/GLOBULIN RATIO 1.3 (1.0-2.7); ALKALINE PHOSPHATASE 65 U/L (46-116); ASPARTATE AMINO TRANSFERASE 25 U/L (15-37); BILIRUBIN,TOTAL 0.2 MG/DL (0.2-1.0); CREATINE KINASE 218 U/L (26-308); FERRITIN 47 NG/ML (8-388); LACTATE DEHYDROGENASE 233 U/L (81-234)
[2019-10-01 22:00] VITALS: BP 150/83
--- NOTE | 2019-10-01 22:55 | NUR ---
ED Nurse Note: Pt reports "pressure" in head is resolved and that she "feels much better". BP has decreased, 150/86 after giving clonidine. Pt tolerated well. will continue to monitor
[2019-10-01 23:25] VITALS: BP 181/99
--- NOTE | 2019-10-01 23:25 | NUR ---
ER DISCHARGE NOTE: Patient is cleared to be discharged per ERMD, pt is aox4, on room air, with stable vital signs. pt was given dc and prescription instructions, pt was able to verbalize understanding, pt id band and iv site removed without complications. pt is able to ambulate with steady gait. pt took all belongings.
== END | disposition home or self-care (01) ==
LOC: EMR 20:01
DX: R06.00 Dyspnea, unspecified (principal); I10 Essential (primary) hypertension; J44.9 Chronic obstructive pulmonary disease, unspecified; E78.00 Pure hypercholesterolemia, unspecified; F17.200 Nicotine dependence, unspecified, uncomplicated; J98.11 Atelectasis
CPT/HCPCS: 36415; 71045; 80053; 81003; 82550; 82728; 83615; 83880; 84484; 85025; 85610; 85730; 93005; 96374; 96375; 99284; G0480; J1200; J2765

== ENCOUNTER 2019-10-05 14:48 | Inpatient (IN) | payer MEDICARE, MEDICAID ==
[~2019-10-05] VITALS: Ht 165.1 cm; Wt 75.6 kg
[~2019-10-05 14:48] MED LIST changes: -DiphenhydrAMINE 50mg/ml Inj IVP ONE; -Metoclopramide 10mg/2ml Inj IVP ONE
[2019-10-05] MEDS ORDERED: DiphenhydrAMINE 25mg Tab ORAL PRN (18:45)
[2019-10-05] MEDS ORDERED: Acetaminophen 500mg (ES) tab ORAL PRN (18:45)
[2019-10-05 18:50] VITALS: BP 184/101
[2019-10-05 20:00] VITALS: BP 188/98
[2019-10-05 20:18] LABS: EOSINOPHILS % (AUTO) 4.8 % (0.0-3.0); HEMATOCRIT 34.3 % (37.0-47.0); HEMOGLOBIN 11.3 G/DL (12.0-16.0); LYMPHOCYTES % (AUTO) 33.8 % (20.0-45.0); MEAN CORPUSCULAR VOLUME 86 FL (80-99); NEUTROPHILS % (AUTO) 47.5 % (45.0-75.0); PLATELET COUNT 247 K/UL (150-450); RED BLOOD COUNT 3.98 M/UL (4.20-5.40); RED CELL DISTRIBUTION WIDTH 14.1 % (11.6-14.8); WHITE BLOOD COUNT 8.3 K/UL (4.8-10.8)
[2019-10-05 20:37] LABS: ALANINE AMINOTRANSFERASE 27 U/L (12-78); ALBUMIN 3.9 G/DL (3.4-5.0); ALBUMIN/GLOBULIN RATIO 1.1 (1.0-2.7); ALKALINE PHOSPHATASE 74 U/L (46-116); ANION GAP 11 mmol/L (5-15); ASPARTATE AMINO TRANSFERASE 27 U/L (15-37); BILIRUBIN,TOTAL 0.2 MG/DL (0.2-1.0); BLOOD UREA NITROGEN 29 mg/dL (7-18); CALCIUM 9.6 MG/DL (8.5-10.1); CARBON DIOXIDE 27 MMOL/L (21-32); CHLORIDE 103 MMOL/L (98-107); CREATININE 1.5 MG/DL (0.55-1.30); POTASSIUM 3.8 MMOL/L (3.5-5.1); SODIUM 141 MMOL/L (136-145)
[2019-10-05] MEDS ORDERED: Cyclobenzaprine 10mg Tab ORAL PRN (21:00)
[2019-10-05] MEDS: Heparin 5000 units/ml inj SUBQ SCH (21:00)
[2019-10-05 21:59] VITALS: BP 178/98
[2019-10-05] MEDS ORDERED: HydrALAZINE 50mg tab ORAL SCH (22:45)
[2019-10-05] MEDS: Solu-MEDROL 40mg Inj IVP SCH (22:54)
[2019-10-05 23:03] VITALS: BP 126/73
[2019-10-06] MEDS: HydrALAZINE 50mg tab ORAL SCH ×4 (01:11→22:45)
[2019-10-06] MEDS: HYDROcodone/Acetamin 10/325 tab ORAL PRN ×4 (01:37→18:42)
[2019-10-06] MEDS: Albuterol/Ipratropium 3ml neb HHN PRN ×2 (02:04→13:26)
--- NOTE | 2019-10-06 03:00 | Consultation ---
DATE OF CONSULTATION: 10/05/2019 CARDIOLOGY CONSULTATION CONSULTING PHYSICIAN: Kapil Conroy MD. REFERRING PHYSICIAN: Damian Morton MD. REASON FOR CONSULTATION: Chest pain and shortness of breath. HISTORY OF PRESENT ILLNESS: This is a 63-year-old female. She has a known history of obstructive lung disease. She was seen in the office complaining of increasing shortness of breath yesterday. She was started on steroids. She did not improve. Today, she also notes chest tightness. The patient was seen in the emergency room at [facility] on September 30 with similar symptoms. Her workup at that time included an EKG revealing sinus rhythm with no acute abnormalities, urinalysis with no active sediment, CBC and chemistry panel within normal limits. Troponin level of 0.011 and pro-natriuretic peptide of 765. The patient was noted to have significantly elevated blood pressure and headache. The patient was treated medically with clonidine and discharged. Since that time, the patient feels she has not improved, but rather worsened. 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 ALLERGIES: Include muscle aches from statin drug and cough from OLYA inhibitors. MEDICATIONS: Reviewed and reconciled. FAMILY HISTORY: Noncontributory. SOCIAL HISTORY: Active smoker, 50-plus pack-years. Denies alcohol or current substance abuse. REVIEW OF SYSTEMS: No fevers or chills. Some dry cough. No sputum production. No leg swelling. No change in bowel habits. Occasional dysuria. No history of diabetes or thyroid impairment. There is a history of head trauma. No seizures. PHYSICAL EXAMINATION: VITAL SIGNS: Blood pressure 188/98, heart rate 59, respiratory rate 19, afebrile. Oxygen saturation on room air 97%. HEENT: Conjunctivae pink. Arcus senilis. Oropharynx clear. NECK: Supple. Jugular venous pressure elevated. LUNGS: With clear breath sounds. CARDIAC: Regular rhythm and rate. Normal S1, S2 with a fourth heart sound. ABDOMEN: Soft, nontender. No bruits. EXTREMITIES: Trace dependent edema. NEUROLOGIC: Nonfocal. LABORATORY DATA: Labs are pending. EKG, sinus rhythm, nonspecific ST change. IMPRESSION: 1. Hypertensive urgency. 2. COPD exacerbation. 3. Acute coronary syndrome. 4. Nicotine dependence. PLAN: 1. Cardiac monitoring. 2. Serial troponins. 3. Antiplatelet therapy. 4. DVT prophylaxis. 5. Up-titration of antihypertensives. 6. Intravenous steroids. 7. Inhaled bronchodilators. 8. Follow up radiograph of the chest. Kapil Conroy M.D. DR: [place] JOB#: [id number] CC:
[2019-10-06 04:00] VITALS: BP 135/72
[2019-10-06 05:30] VITALS: BP 150/78
[2019-10-06] MEDS: Solu-MEDROL 40mg Inj IVP SCH ×3 (05:40→22:45)
[2019-10-06 06:39] LABS: HEMATOCRIT 34.3 % (37.0-47.0); HEMOGLOBIN 12.3 G/DL (12.0-16.0); MEAN CORPUSCULAR VOLUME 81 FL (80-99); PLATELET COUNT 250 K/UL (150-450); RED BLOOD COUNT 4.25 M/UL (4.20-5.40); RED CELL DISTRIBUTION WIDTH 12.3 % (11.6-14.8); WHITE BLOOD COUNT 8.2 K/UL (4.8-10.8)
[2019-10-06 07:00] LABS: ALANINE AMINOTRANSFERASE 27 U/L (12-78); ALBUMIN 3.9 G/DL (3.4-5.0); ALKALINE PHOSPHATASE 73 U/L (46-116); ANION GAP 10 mmol/L (5-15); ASPARTATE AMINO TRANSFERASE 25 U/L (15-37); BILIRUBIN,TOTAL 0.2 MG/DL (0.2-1.0); BLOOD UREA NITROGEN 25 mg/dL (7-18); CALCIUM 9.6 MG/DL (8.5-10.1); CARBON DIOXIDE 26 MMOL/L (21-32); CHLORIDE 104 MMOL/L (98-107); CREATININE 1.2 MG/DL (0.55-1.30); SODIUM 140 MMOL/L (136-145)
[2019-10-06] MEDS ORDERED: LORazepam 1mg tab ORAL PRN (07:15)
[2019-10-06 08:00] VITALS: BP 116/61
[2019-10-06] MEDS: Heparin 5000 units/ml inj SUBQ SCH ×2 (09:00→21:00)
[2019-10-06] MEDS: Aspirin EC 81mg tab ORAL SCH (09:28)
[2019-10-06] MEDS: Sucralfate 1gm tab ORAL SCH ×2 (09:29→17:26)
--- NOTE | 2019-10-06 10:23 | Diagnostic Imaging Report ---
EXAM: CT CT Chest no Contrast CLINICAL HISTORY: Shortness of breath. TECHNIQUE: Axial images obtained through the chest without contrast. All CT scans at this facility are performed using dose modulation techniques as appropriate to a performed exam including the following: automated exposure control with adjustment of the mA and/or kV according to patient size. RADIATION DOSE: CTDIvol: 4.4 mGy DLP: 168 mGy-cm Dose information generated by the CT scanner is available in PACS. COMPARISON: Chest x-ray 10/06/2019 FINDINGS: There is mild bilateral apical pleural parenchymal scarring. Some dependent atelectasis noted in the left lung base. Lungs are otherwise clear. 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 There is no pathologic size adenopathy. There is no effusion. Limited images through the upper abdomen are unremarkable. IMPRESSION: MINIMAL ATELECTASIS. NO ACUTE CARDIOPULMONARY DISEASE.
--- NOTE | 2019-10-06 10:26 | Diagnostic Imaging Report ---
EXAM: CT CT Head no Contrast INDICATION: Altered mental status. TECHNIQUE: Axial images of the brain were obtained with subsequent sagittal and coronal reformats. All CT scans at this facility are performed using dose modulation techniques as appropriate to a performed exam including the following: automated exposure control with adjustment of the mA and/or kV according to patient size. COMPARISON STUDY: None. RADIATION DOSE: CTDIvol: 53.4 mGy DLP: 1018.8 mGy-cm Dose information generated by the CT scanner is available in PACS. FINDINGS: There is normal symmetry and normal delgadillo-white differentiation. There is no acute large territory cortical infarct, hemorrhage, mass effect or shift. Ventricles and cisterns as well as brainstem and posterior fossa appear unremarkable. The sellar region is normal. Sinuses, mastoid air cells and bony calvarium appear intact. IMPRESSION: NO ACUTE INTRACRANIAL ABNORMALITY.
--- NOTE | 2019-10-06 10:30 | Diagnostic Imaging Report ---
Procedure: XRAY Chest 1v Reason for study: Shortness of breath. Comparison films: 10/01/2019. FINDINGS: A single one view chest is obtained. Vascularity is normal. Left basilar linear atelectasis or scarring noted unchanged. Cardiac and mediastinal silhouette are within normal limits. CP angles are sharp. The bony thorax appear unremarkable. IMPRESSION: NO SIGNIFICANT CHANGE COMPARED TO PREVIOUS EXAM.
[2019-10-06 12:00] VITALS: BP 144/84
--- NOTE | 2019-10-06 12:15 | History and Physical Report ---
DATE OF ADMISSION: 10/05/2019 CHIEF COMPLAINT: Shortness of breath and right-sided numbness. HISTORY OF PRESENT ILLNESS: The patient is a 63-year-old female well known to me. She has a history of hypertensive heart disease, COPD, nicotine dependence, who presented with complaints of shortness of breath to her it infrastructure engineer's office. The patient was felt to be having a possible COPD exacerbation. I saw the patient a little over a week ago. At that time, her COPD regimen was adjusted. She had been compliant with medications, but had continued worsening shortness of breath. In light of her failure to respond to outpatient therapy, she is now admitted for further evaluation and care. She denies any fevers or chills. She has had some chest pain. She also knows that she has had right-sided numbness, which she did not tell her it infrastructure engineer. She denies any focal weakness. No slurred speech. PAST MEDICAL HISTORY: As above. PAST SURGICAL HISTORY: None. CURRENT MEDICATIONS: Reconciled and reviewed. ALLERGIES: Include OLYA inhibitors. FAMILY HISTORY: None. SOCIAL HISTORY: The patient is a smoker. No alcohol. No drugs. REVIEW OF SYSTEMS: GENERAL: No fevers or chills. HEENT: No headaches or visual changes. No sore throat. CARDIOPULMONARY: Positive chest pain and shortness of breath. GASTROINTESTINAL: No nausea or vomiting. No melena. No bright red blood per rectum. No diarrhea. GENITOURINARY: No urgency or frequency. MUSCULOSKELETAL: No joint pain or swelling. NEUROLOGIC: No evidence of seizures. PHYSICAL EXAMINATION: VITAL SIGNS: Temperature 98 degrees, pulse 61, respirations 18, and blood pressure 135/72. GENERAL: The patient is well-developed, no apparent distress. HEART: Regular rate and rhythm. HEENT: Head was normocephalic and atraumatic. Pupils are equal, round, and reactive to light. Sclerae are anicteric. Oropharynx is clear. NECK: Supple. There is no adenopathy. No jugular venous distention. HEART: Regular rate and rhythm without murmurs, rubs, or gallops. LUNGS: Significant for few scattered wheezes with diminished breath sounds. No rales. ABDOMEN: Soft, nontender, nondistended. EXTREMITIES: Without clubbing, cyanosis, or edema. LABORATORY DATA: White count 8, hemoglobin 11. Sodium 141, potassium 3.8, BUN 29, creatinine is 1.5. Troponin is 0.06. ASSESSMENT: This is a 63-year-old female, admitted with complaints of shortness of breath due to COPD exacerbation, right-sided numbness possibly secondary to stroke, also hypertensive emergency. PLAN: Intravenous steroids and breathing treatments [id number]. Followup chest x-ray. Check a venous duplex. CT scan of the brain will also be ordered to further evaluate the patient's numbness. Cardiology consultation has been obtained. Damian Morton M.D. DR: RAQUEL JOB#: [id number] CC:
[2019-10-06 16:00] VITALS: BP 152/79
[2019-10-06] MEDS: Docusate 100mg cap ORAL SCH (17:25)
[2019-10-06] MEDS ORDERED: Miralax 17gm pkt ORAL PRN (19:30)
[2019-10-06 20:00] VITALS: BP 148/81
[2019-10-06] MEDS: Miralax 17gm pkt ORAL SCH (22:45)
[2019-10-07] VITALS (7 sets, daily range): BP systolic 113–176; BP diastolic 69–98
[2019-10-07] MEDS: HYDROcodone/Acetamin 10/325 tab ORAL PRN ×4 (01:06→20:12)
--- NOTE | 2019-10-07 03:45 | Progress Note ---
DATE: 10/06/2019 CARDIOLOGY PROGRESS NOTE SUBJECTIVE: The patient still feels short of breath, but slightly improved. No cough. No sputum production. Blood pressure parameters have improved. PHYSICAL EXAMINATION: VITAL SIGNS: Blood pressure 148/81, heart rate 74, respiratory rate 20, afebrile, oxygen saturation 96% on 2 liters. LUNGS: Diminished breath sounds. No wheezing. CARDIAC: Regular rhythm and rate. Normal S1, S2 with a fourth heart sound. ABDOMEN: Soft. EXTREMITIES: Trace edema. LABORATORY AND DIAGNOSTIC DATA: Pro-natriuretic peptide 300. Troponin 0. BUN 25, creatinine 1.2, potassium 4. White count 8.2, hemoglobin 12.3. Venous duplex scan is pending. CAT scan of the chest reveals atelectasis, but no acute process. Monitored rhythm sinus and sinus bradycardia. IMPRESSION: 1. COPD exacerbation. 2. Hypertensive urgency. 3. Possible acute cerebrovascular insult. 4. Acute coronary insufficiency. 5. Nicotine dependence. PLAN: Followup venous duplex scan. Continue respiratory therapy including steroids and bronchodilators. Continue titration of anti-failure and antianginal regimen. DVT prophylaxis. Kapil Conroy M.D. DR: JOSE JOB#: [id number] CC:
[2019-10-07] MEDS: HydrALAZINE 50mg tab ORAL SCH ×3 (06:07→21:50)
[2019-10-07] MEDS: Solu-MEDROL 40mg Inj IVP SCH ×2 (06:07→17:29)
--- NOTE | 2019-10-07 08:27 | General Progress Note ---
Assessment/Plan Problem List: (1) COPD exacerbation ICD Codes: J44.1 - Chronic obstructive pulmonary disease with (acute) exacerbation SNOMED: 631619815 (2) Fecal impaction ICD Codes: K56.41 - Fecal impaction SNOMED: 16702567 Status: stable Assessment/Plan: wean steroids bowel regime adjusted anxiolytics benadryl for itching ct cxr reviewed. d/w cards Subjective ROS Limited/Unobtainable: No Constitutional: Reports: malaise, weakness HEENT: Reports: no symptoms Cardiovascular: Reports: no symptoms Respiratory: Reports: cough, shortness of breath, SOB with excertion Gastrointestinal/Abdominal: Reports: constipated Genitourinary: Reports: no symptoms Neurologic/Psychiatric: Reports: anxiety, emotional problems Endocrine: Reports: no symptoms Hematologic/Lymphatic: Reports: no symptoms Allergies: Coded Allergies: OLYA INHIBITORS (Verified Allergy, Unknown, 04/14/18) Swelling in the toungue, mouth All Systems: reviewed and negative except above Subjective multiple complaints. sob with minimal exertion. very constipated. very agitated and anxious. c/o itching Objective Last 24 Hour Vital Signs Date Time Temp Pulse Resp B/P (MAP) Pulse Ox O2 Delivery O2 Flow Rate FiO2 10/07/19 06:37 98.1 10/07/19 06:17 158/91 (113) 10/07/19 06:07 155/69 10/07/19 06:07 155/69 10/07/19 04:00 72 10/07/19 01:04 155/69 10/07/19 00:00 69 10/07/19 00:00 98.1 67 19 155/69 (97) 96 10/06/19 23:46 98.1 10/06/19 22:45 148/81 10/06/19 21:00 Room Air 10/06/19 20:09 76 18 99 Room Air 21 10/06/19 20:00 98.1 74 20 148/81 (103) 99 10/06/19 20:00 70 10/06/19 17:25 152/79 10/06/19 16:00 96.8 67 19 152/79 (103) 99 10/06/19 16:00 72 10/06/19 13:49 144/84 10/06/19 13:27 67 20 100 Room Air 21 66 22 100 10/06/19 12:05 144/84 10/06/19 12:00 98.1 66 21 144/84 (104) 100 10/06/19 12:00 70 10/06/19 09:29 68 116/61 10/06/19 09:00 Room Air Intake and Output 10/06/19 10/07/19 18:59 06:59 Intake Total 640 ml Balance 640 ml Intake Oral 640 ml # Voids 2 1 Height (Feet): 5 Height (Inches): 5.00 Weight (Pounds): 170 General Appearance: WD/WN, alert, mild distress EENT: PERRL/EOMI, normal ENT inspection Neck: non-tender, normal alignment, supple Cardiovascular: normal peripheral pulses, normal rate, regular rhythm Respiratory/Chest: chest wall non-tender, lungs clear, normal breath sounds, no respiratory distress, no accessory muscle use Abdomen: normal bowel sounds, non tender, soft, no organomegaly Edema: no edema noted Arm (L), no edema noted Arm (R), no edema noted Leg (L), no edema noted Leg (R), no edema noted Pedal (L), no edema noted Pedal (R), no edema noted 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
[2019-10-07] MEDS ORDERED: Magnesium Citrate Liq Btl ORAL SCH (08:30)
[2019-10-07] MEDS ORDERED: DiphenhydrAMINE 50mg/ml Inj IVP SCH (08:30)
[2019-10-07] MEDS ORDERED: Fleet's Enema 133ml RECTAL SCH (08:30)
[2019-10-07] MEDS: Aspirin EC 81mg tab ORAL SCH (09:24)
[2019-10-07] MEDS: Sucralfate 1gm tab ORAL SCH ×2 (09:24→17:27)
[2019-10-07] MEDS: Docusate 100mg cap ORAL SCH ×2 (09:24→17:27)
[2019-10-07] MEDS: Heparin 5000 units/ml inj SUBQ SCH ×2 (09:30→20:04)
[2019-10-07] MEDS: Miralax 17gm pkt ORAL SCH (20:12)
[2019-10-08] VITALS (7 sets, daily range): BP systolic 114–162; BP diastolic 72–87
--- NOTE | 2019-10-08 03:15 | Progress Note ---
DATE: 10/07/2019 CARDIOLOGY PROGRESS NOTE SUBJECTIVE: The patient continues to have shortness of breath with exertion. Constipation noted. No chest pain. OBJECTIVE: VITAL SIGNS: Blood pressure 158/91, pulse 72, respirations 19, and afebrile. LUNGS: Diminished breath sounds. No wheezing. CARDIAC: Regular rhythm and rate. Normal S1 and S2. ABDOMEN: Soft. EXTREMITIES: No edema. IMPRESSION: 1. Chronic obstructive pulmonary disease exacerbation. 2. Hypertensive urgency, recovering. 3. Acute coronary insufficiency, stabilized. 4. Nicotine dependence. 5. Possible acute cerebrovascular insult, ___ unlikely based on current status. 6. Dyspnea rule out pulmonary venous event. PLAN: 1. Await venous duplex study. 2. Continue bronchodilators and steroids with taper. 3. Optimize antihypertensives. 4. Diuresis trial. Kapil Conroy M.D. DR: PAM JOB#: [id number] CC:
[2019-10-08] MEDS: Solu-MEDROL 40mg Inj IVP SCH ×2 (05:09→19:17)
[2019-10-08] MEDS: HYDROcodone/Acetamin 10/325 tab ORAL PRN ×3 (05:10→17:46)
[2019-10-08] MEDS: HydrALAZINE 50mg tab ORAL SCH ×3 (05:17→17:44)
[2019-10-08] MEDS ORDERED: Omnipaque 350 100ml vial INJ PRN ×2 (08:45→17:00)
[2019-10-08] MEDS ORDERED: Magnesium Citrate Liq Btl ORAL ONE (08:45)
--- NOTE | 2019-10-08 08:45 | General Progress Note ---
Assessment/Plan Problem List: (1) COPD exacerbation ICD Codes: J44.1 - Chronic obstructive pulmonary disease with (acute) exacerbation SNOMED: 881578575 (2) Fecal impaction ICD Codes: K56.41 - Fecal impaction SNOMED: [id number] Status: stable Assessment/Plan: wean steroids bowel regime anxiolytics benadryl for itching cta to r/o pe check venous duplex Subjective ROS Limited/Unobtainable: No Constitutional: Reports: malaise, weakness HEENT: Reports: no symptoms Cardiovascular: Reports: no symptoms Respiratory: Reports: cough, shortness of breath Gastrointestinal/Abdominal: Reports: constipated Genitourinary: Reports: no symptoms Neurologic/Psychiatric: Reports: anxiety, depressed, emotional problems Endocrine: Reports: no symptoms Hematologic/Lymphatic: Reports: no symptoms Allergies: Coded Allergies: OLYA INHIBITORS (Verified Allergy, Unknown, 04/14/18) Swelling in the toungue, mouth All Systems: reviewed and negative except above Subjective c/o constipation still. had bowel movement yesterday but states she still feels "full." intermittent episodes of sob. unrelieved with o2 or resp rx. CT result reviewed with pt Objective Last 24 Hour Vital Signs Date Time Temp Pulse Resp B/P (MAP) Pulse Ox O2 Delivery O2 Flow Rate FiO2 10/08/19 05:40 97.9 10/08/19 05:17 162/87 10/08/19 05:10 162/87 10/08/19 04:00 65 10/08/19 04:00 97.9 60 20 162/87 (112) 97 10/08/19 00:37 146/77 10/08/19 00:00 64 10/08/19 00:00 98.1 63 20 145/79 (101) 96 10/07/19 22:15 146/77 (100) 10/07/19 21:50 176/98 10/07/19 21:15 Room Air 10/07/19 20:05 79 18 99 Room Air 21 10/07/19 20:00 67 10/07/19 20:00 98.6 68 20 176/98 (124) 95 10/07/19 17:27 113/74 10/07/19 16:00 67 10/07/19 16:00 98.1 66 20 113/74 (87) 96 10/07/19 13:20 166/89 5/23/20 12:48 166/89 10/07/19 12:00 98.0 67 20 166/89 (114) 98 10/07/19 12:00 73 10/07/19 09:24 67 160/87 10/07/19 09:00 Room Air Intake and Output 10/07/19 10/08/19 19:00 07:00 Intake Total 400 ml Balance 400 ml Intake Oral 400 ml # Voids 3 4 # Bowel Movements 2 Height (Feet): 5 Height (Inches): 5.00 Weight (Pounds): 170 General Appearance: WD/WN, alert, mild distress EENT: PERRL/EOMI, normal ENT inspection Neck: non-tender, normal alignment Cardiovascular: normal peripheral pulses, normal rate, regular rhythm Respiratory/Chest: chest wall non-tender, lungs clear, normal breath sounds, no respiratory distress Abdomen: normal bowel sounds, non tender, soft, no organomegaly Edema: no edema noted Arm (L), no edema noted Arm (R), no edema noted Leg (L), no edema noted Leg (R), no edema noted Pedal (L), no edema noted Pedal (R), no edema noted 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
[2019-10-08] MEDS: Sucralfate 1gm tab ORAL SCH ×2 (09:36→17:44)
[2019-10-08] MEDS: Docusate 100mg cap ORAL SCH ×2 (09:37→17:44)
[2019-10-08] MEDS: Aspirin EC 81mg tab ORAL SCH (09:37)
[2019-10-08] MEDS: Heparin 5000 units/ml inj SUBQ SCH ×3 (09:43→22:08)
[2019-10-08] MEDS ORDERED: DiphenhydrAMINE 25mg Tab ORAL PRN (17:00)
[2019-10-08] MEDS ORDERED: Acetaminophen 500mg (ES) tab ORAL PRN (17:00)
[2019-10-08] MEDS ORDERED: Cyclobenzaprine 10mg Tab ORAL PRN (17:00)
[2019-10-08] MEDS ORDERED: LORazepam 1mg tab ORAL PRN (17:00)
[2019-10-08] MEDS ORDERED: Albuterol/Ipratropium 3ml neb HHN PRN (17:00)
[2019-10-08] MEDS: Miralax 17gm pkt ORAL SCH (22:06)
[2019-10-09] VITALS: BP 159/81
[2019-10-09] MEDS: HydrALAZINE 50mg tab ORAL SCH ×5 (00:49→23:37)
[2019-10-09] MEDS: HYDROcodone/Acetamin 10/325 tab ORAL PRN ×5 (00:50→23:38)
--- NOTE | 2019-10-09 01:45 | Progress Note ---
DATE: 10/08/2019 SUBJECTIVE: Patient is still with shortness of breath episodically. Still feels bloated. Diuresis was given this morning. PHYSICAL EXAMINATION: VITAL SIGNS: Blood pressure 162/87, heart rate 65, respirations 20, afebrile, room air oxygen saturation 94 to 97%. LUNGS: Bilateral breath sounds. No wheezes. No rales. CARDIAC: Regular rhythm and rate. Normal S1, S2 with a fourth heart sound. ABDOMEN: Soft. EXTREMITIES: No edema. IMPRESSION: 1. COPD. 2. Dyspnea. 3. Rule out pulmonary embolic event. 4. Hypertensive heart disease. 5. Chronic diastolic congestive heart failure. PLAN: 1. Agree with CT angiogram. 2. Still awaiting venous duplex scan. 3. Titrating anti-failure and anti hypertensive regimen. 4. Periodic diuresis. 5. DVT prophylaxis for now. Kapil Conroy M.D. DR: ISA JOB#: [id number] CC:
[2019-10-09 04:00] VITALS: BP 162/95
[2019-10-09] MEDS: Solu-MEDROL 40mg Inj IVP SCH ×2 (06:37→17:34)
[2019-10-09 08:00] VITALS: BP 155/91
--- NOTE | 2019-10-09 08:15 | General Progress Note ---
Assessment/Plan Problem List: (1) COPD exacerbation ICD Codes: J44.1 - Chronic obstructive pulmonary disease with (acute) exacerbation SNOMED: 147353708 (2) Fecal impaction ICD Codes: K56.41 - Fecal impaction SNOMED: 46580766 Status: stable Assessment/Plan: wean steroids bowel regime anxiolytics benadryl for itching cta to r/o pe- today check venous duplex- today Subjective ROS Limited/Unobtainable: No Constitutional: Reports: malaise, weakness HEENT: Reports: no symptoms Cardiovascular: Reports: no symptoms Respiratory: Reports: cough, shortness of breath Gastrointestinal/Abdominal: Reports: constipated Genitourinary: Reports: no symptoms Neurologic/Psychiatric: Reports: anxiety Endocrine: Reports: no symptoms Hematologic/Lymphatic: Reports: no symptoms Allergies: Coded Allergies: OLYA INHIBITORS (Verified Allergy, Unknown, 04/14/18) Swelling in the toungue, mouth All Systems: reviewed and negative except above Subjective c/o constipation. did not take mag citrate yesterday. no fever or chills. still having intermittent episodes of sob. sob unrelieved with o2 or resp rx. CT result reviewed with pt. CTA and venous duplex ordered yesterday. scheduled for today Objective Last 24 Hour Vital Signs Date Time Temp Pulse Resp B/P (MAP) Pulse Ox O2 Delivery O2 Flow Rate FiO2 10/09/19 06:30 162/95 10/09/19 06:30 162/95 10/09/19 04:00 98.4 67 18 162/95 (117) 95 10/09/19 00:49 159/81 10/09/19 00:49 159/81 10/09/19 00:00 98.2 63 20 159/81 (107) 97 10/08/19 21:00 Room Air 10/08/19 20:00 97.9 67 20 130/72 (91) 98 10/08/19 18:16 97.5 10/08/19 18:00 97.5 60 22 128/75 (92) 97 10/08/19 17:44 138/76 10/08/19 17:44 138/76 10/08/19 16:00 99.3 62 20 114/75 (88) 100 10/08/19 16:00 62 10/08/19 12:11 138/76 10/08/19 12:11 138/76 5/24/20 12:00 65 10/08/19 12:00 98.1 63 20 138/76 (96) 98 10/08/19 09:37 61 137/78 10/08/19 09:00 Room Air Intake and Output 10/08/19 10/09/19 19:00 07:00 Intake Total 720 ml 240 ml Balance 720 ml 240 ml Intake Oral 720 ml 240 ml # Voids 3 3 # Bowel Movements 1 1 Height (Feet): 5 Height (Inches): 5.00 Weight (Pounds): 170 Objective General Appearance: WD/WN, alert, mild distress EENT: PERRL/EOMI, normal ENT inspection Neck: non-tender, normal alignment Cardiovascular: normal peripheral pulses, normal rate, regular rhythm Respiratory/Chest: chest wall non-tender, lungs clear, normal breath sounds, no respiratory distress Abdomen: normal bowel sounds, non tender, soft, no organomegaly Edema: no edema noted Arm (L), no edema noted Arm (R), no edema noted Leg (L), no edema noted Leg (R), no edema noted Pedal (L), no edema noted Pedal (R), no edema noted 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
[2019-10-09 10:41] LABS: BASOPHILS % (AUTO) 0.4 % (0.0-2.0); HEMATOCRIT 35.5 % (37.0-47.0); LYMPHOCYTES % (AUTO) 10.8 % (20.0-45.0); MEAN CORPUSCULAR VOLUME 79 FL (80-99); MONOCYTES % (AUTO) 5.3 % (1.0-10.0); NEUTROPHILS % (AUTO) 83.4 % (45.0-75.0); PLATELET COUNT 317 K/UL (150-450); RED CELL DISTRIBUTION WIDTH 11.9 % (11.6-14.8); WHITE BLOOD COUNT 13.5 K/UL (4.8-10.8)
[2019-10-09 11:14] LABS: ALANINE AMINOTRANSFERASE 86 U/L (12-78); ALBUMIN 3.7 G/DL (3.4-5.0); ALBUMIN/GLOBULIN RATIO 0.9 (1.0-2.7); ALKALINE PHOSPHATASE 73 U/L (46-116); ANION GAP 13 mmol/L (5-15); ASPARTATE AMINO TRANSFERASE 43 U/L (15-37); BILIRUBIN,TOTAL 0.2 MG/DL (0.2-1.0); BLOOD UREA NITROGEN 26 mg/dL (7-18); CALCIUM 9.4 MG/DL (8.5-10.1); CARBON DIOXIDE 25 MMOL/L (21-32); CHLORIDE 102 MMOL/L (98-107); CREATININE 1.1 MG/DL (0.55-1.30); POTASSIUM 4.3 MMOL/L (3.5-5.1); SODIUM 140 MMOL/L (136-145)
[2019-10-09] MEDS: Aspirin EC 81mg tab ORAL SCH (11:37)
[2019-10-09] MEDS: Sucralfate 1gm tab ORAL SCH ×2 (11:41→17:29)
[2019-10-09] MEDS: Docusate 100mg cap ORAL SCH ×2 (11:41→17:29)
[2019-10-09] MEDS: Heparin 5000 units/ml inj SUBQ SCH ×2 (11:46→22:14)
[2019-10-09 12:00] VITALS: BP 130/78
--- NOTE | 2019-10-09 12:20 | Diagnostic Imaging Report ---
EXAM: US Duplex Bilateral Upper Extremities Veins CLINICAL HISTORY: DVT TECHNIQUE: Real-time duplex ultrasound scan of the bilateral upper extremity veins integrating B-mode two-dimensional vascular structure, Doppler spectral analysis, color flow Doppler imaging and compression. COMPARISON: None FINDINGS: Right deep veins: Unremarkable. No DVT in the right internal jugular, subclavian, axillary, or brachial veins. The veins demonstrate normal color flow, are normally compressible, with normal phasic flow and/or augmentation response. Right superficial veins: Unremarkable. No thrombus in the visualized right basilic and cephalic veins. Left deep veins: Unremarkable. No DVT in the left internal jugular, subclavian, axillary, or brachial veins. The veins demonstrate normal color flow, are normally compressible, with normal phasic flow and/or augmentation response. Left superficial veins: Unremarkable. No thrombus in the visualized left basilic and cephalic veins. Soft tissues: No acute findings. IMPRESSION: No deep venous thrombosis identified in either lower extremity.
[2019-10-09 16:00] VITALS: BP 126/73
[2019-10-09 20:00] VITALS: BP 153/97
[2019-10-09] MEDS ORDERED: DiphenhydrAMINE 50mg/ml Inj IVP PRN (22:00)
[2019-10-09] MEDS: Miralax 17gm pkt ORAL SCH (22:12)
[2019-10-10] VITALS: BP 160/89
--- NOTE | 2019-10-10 03:00 | Progress Note ---
DATE: 10/09/2019 CARDIOLOGY PROGRESS NOTE SUBJECTIVE: The patient remains short of breath. She still has constipation. She does not feel like she is at her baseline or able to function with physical activity. Her venous duplex scan was negative for DVT. OBJECTIVE: VITAL SIGNS: Blood pressure 128/75 to 162/95, heart rate 60, respiratory rate 20, and afebrile. LUNGS: Diminished breath sounds. No wheezing. CARDIAC: Regular rhythm and rate. Normal S1, S2 with a fourth heart sound. ABDOMEN: Soft. EXTREMITIES: Trace edema. LABORATORY DATA: White count 13.5, hemoglobin 13. Sodium 140, potassium 4.3, bicarb 25, BUN 26, creatinine 1.1, glucose 129. Magnesium 2.8. Liver function studies are slightly elevated. Pro-natriuretic peptide 555. IMPRESSION: 1. Persisting dyspnea. 2. COPD. 3. Steroid-associated leukocytosis. 4. Acute on chronic diastolic congestive heart failure. 5. Hypertensive heart disease with labile blood pressure. PLAN: 1. DVT prophylaxis. 2. Await CT angio of the chest. 3. Advance antihypertensive regimen. 4. Additional diuresis. 5. Steroid taper. Kapil Conroy M.D. DR: [place] JOB#: [id number] CC:
[2019-10-10 04:00] VITALS: BP 144/84
[2019-10-10] MEDS: HYDROcodone/Acetamin 10/325 tab ORAL PRN ×4 (04:39→21:19)
[2019-10-10] MEDS: HydrALAZINE 50mg tab ORAL SCH ×3 (05:36→21:20)
--- NOTE | 2019-10-10 07:23 | General Progress Note ---
Assessment/Plan Problem List: (1) COPD exacerbation ICD Codes: J44.1 - Chronic obstructive pulmonary disease with (acute) exacerbation SNOMED: 567742841 (2) Fecal impaction ICD Codes: K56.41 - Fecal impaction SNOMED: 19795296 Status: stable Assessment/Plan: wean steroids bowel regime anxiolytics benadryl for itching and sleep cta to r/o pe check venous duplex- today abd us today adjusted pain meds walker Subjective ROS Limited/Unobtainable: No Constitutional: Reports: malaise, weakness HEENT: Reports: no symptoms Cardiovascular: Reports: no symptoms Respiratory: Reports: shortness of breath Gastrointestinal/Abdominal: Reports: abdomen distended, abdominal pain Genitourinary: Reports: no symptoms Neurologic/Psychiatric: Reports: anxiety, emotional problems Endocrine: Reports: no symptoms Hematologic/Lymphatic: Reports: no symptoms Allergies: Coded Allergies: OLYA INHIBITORS (Verified Allergy, Unknown, 04/14/18) Swelling in the toungue, mouth All Systems: reviewed and negative except above Subjective multiple complaints. continued "arthritis pain" uncontrolled. unable to get Ct yesterday. poor iv access and refused to stay npo. c/o insomnia. Objective Last 24 Hour Vital Signs Date Time Temp Pulse Resp B/P (MAP) Pulse Ox O2 Delivery O2 Flow Rate FiO2 10/10/19 05:36 161/89 10/10/19 05:35 161/89 10/10/19 04:00 98.3 64 18 144/84 (104) 97 10/10/19 00:00 98.5 63 18 160/89 (112) 97 10/09/19 23:38 160/89 10/09/19 23:37 160/89 10/09/19 21:00 Room Air 10/09/19 20:00 98.3 61 18 153/97 (115) 98 10/09/19 17:59 98.0 10/09/19 17:30 126/73 10/09/19 17:29 126/73 10/09/19 16:00 98.0 63 18 126/73 (90) 100 10/09/19 12:00 98.3 67 20 130/78 (95) 98 10/09/19 11:38 155/91 10/09/19 11:37 60 155/91 10/09/19 11:27 155/91 10/09/19 09:00 Room Air 10/09/19 08:00 97.5 60 22 155/91 (112) 97 Intake and Output 10/09/19 10/10/19 18:59 06:59 Intake Total 720 ml 400 ml Balance 720 ml 400 ml Intake Oral 720 ml 400 ml # Voids 1 3 Laboratory Tests 10/09/19 09:53: White Blood Count 13.5H, Red Blood Count 4.50, Hemoglobin 13.0, Hematocrit 35.5L , Mean Corpuscular Volume 79L, Mean Corpuscular Hemoglobin 28.8, Mean Corpuscular Hemoglobin Concent 36.5H, Red Cell Distribution Width 11.9, Platelet Count 317, Mean Platelet Volume 5.8L, Neutrophils (%) (Auto) 83.4H, Lymphocytes (%) (Auto) 10.8L, Monocytes (%) (Auto) 5.3, Eosinophils (%) (Auto) 0.0, Basophils (%) (Auto) 0.4, Sodium Level 140, Potassium Level 4.3, Chloride Level 102, Carbon Dioxide Level 25, Anion Gap 13, Blood Urea Nitrogen 26H, Creatinine 1.1, Estimat Glomerular Filtration Rate > 60, Glucose Level 129H, Calcium Level 9.4, Magnesium Level 2.8H, Total Bilirubin 0.2, Aspartate Amino Transf (AST/SGOT) 43H, Alanine Aminotransferase (ALT/SGPT) 86H, Alkaline Phosphatase 73, Pro-B-Type Natriuretic Peptide 555H, Total Protein 7.7, Albumin 3.7, Globulin 4.0, Albumin/Globulin Ratio 0.9L Height (Feet): 5 Height (Inches): 5.00 Weight (Pounds): 170 Objective General Appearance: WD/WN, alert, mild distress EENT: PERRL/EOMI, normal ENT inspection Neck: non-tender, normal alignment Cardiovascular: normal peripheral pulses, normal rate, regular rhythm Respiratory/Chest: chest wall non-tender, lungs clear, normal breath sounds, no respiratory distress Abdomen: normal bowel sounds, non tender, soft, no organomegaly Edema: no edema noted Arm (L), no edema noted Arm (R), no edema noted Leg (L), no edema noted Leg (R), no edema noted Pedal (L), no edema noted Pedal (R), no edema noted 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
[2019-10-10] MEDS ORDERED: DiphenhydrAMINE 50mg/ml Inj IVP PRN (07:30)
[2019-10-10 08:48] VITALS: BP 189/101
[2019-10-10] MEDS: Aspirin EC 81mg tab ORAL SCH (08:58)
[2019-10-10] MEDS: Sucralfate 1gm tab ORAL SCH ×2 (08:58→17:09)
[2019-10-10] MEDS: Docusate 100mg cap ORAL SCH ×2 (08:59→17:09)
[2019-10-10] MEDS ORDERED: Solu-MEDROL 40mg Inj IVP SCH (09:00)
[2019-10-10] MEDS: Heparin 5000 units/ml inj SUBQ SCH ×2 (09:00→21:16)
--- NOTE | 2019-10-10 09:43 | Diagnostic Imaging Report ---
Indication: Abnormal liver function tests, abnormal renal function tests, history of prior cholecystectomy Technique: Castro-scale and duplex images of the upper abdomen were obtained. Doppler interrogation of the hepatic and pancreatic vessels Comparison: No comparison sonograms. Reference made to abdomen pelvis CT scan dated 03/07/2019 Findings: Gallbladder has been removed Common bile duct measures 12 mm in diameter. No intrahepatic biliary ductal dilatation. Liver demonstrates normal echogenicity, no focal abnormality. Portal vein and hepatic veins are patent. Pancreas is unremarkable. Spleen is unremarkable. Left kidney measures 9 cm in length. Right kidney measures 9.9 cm length. Both kidneys demonstrate normal echogenicity. There is no hydronephrosis. No focal abnormality . Non-aneurysmal abdominal aorta . Impression: Status post cholecystectomy. Dilated intrahepatic bile ducts, similar in extent to that seen on prior CT scan of 03/07/2019, likely related to age and postcholecystectomy state. Downstream obstruction not completely excludable however. Correlate with liver function tests, consider MRCP if clinically indicated Otherwise unremarkable
--- NOTE | 2019-10-10 10:27 | Diagnostic Imaging Report ---
ndication: Shortness of breath Technique: IV administration nonionic contrast. Spiral acquisitions obtained from the lung bases to the lung apices. Multiplanar and 3-D reconstructions were generated. Total dose length product 233 mGycm. CTDIvol(s) one, 31, 5 mGy. Dose reduction achieved using automated exposure control Comparison: Noncontrast chest CT 10/06/2019 Findings: There suboptimal opacification of the pulmonary arteries. This limits evaluation. No definite filling defects or other findings to suggest acute pulmonary embolus are demonstrated. No pulmonary artery dilatation or right ventricular dilatation demonstrated. The ascending thoracic aorta is ectatic, not frankly aneurysmal, measuring up to 4 cm in diameter. There is an aberrant right subclavian artery noted. The heart is upper limits normal in size. Lungs demonstrate mosaic perfusion pattern. This is not evident currently. Minimal atelectasis is seen in the inferior lingula. No infiltrates, masses, or nodules are demonstrated. No mediastinal or hilar mass or adenopathy is demonstrated. There is minimal anterior wall pericardial thickening versus fluid. This is a new finding. The thyroid is unremarkable. The included upper abdominal anatomy is remarkable for the presence of cholecystectomy clips.. Impression: Limited exam due to suboptimal pulmonary artery opacification. No definite evidence of pulmonary embolus Borderline cardiomegaly Mosaic pulmonary perfusion pattern, may indicate mild pulmonary edema Fusiform ectasia of the ascending thoracic aorta, diameter of 4 cm Evidence of prior cholecystectomy The CT scanner at [facility] is accredited by the [place] [employer] and the scans are performed using protocols designed to limit radiation exposure to as low as reasonably achievable to attain images of sufficient resolution adequate for diagnostic evaluation.
[2019-10-10 12:00] VITALS: BP 121/66
[2019-10-10 16:00] VITALS: BP 117/69
[2019-10-10 20:00] VITALS: BP_SYST 111; BP_SYST 126; BP_DIAS 71
[2019-10-10] MEDS: Miralax 17gm pkt ORAL SCH (21:16)
[2019-10-11] VITALS: BP 126/71
[2019-10-11] MEDS: HYDROcodone/Acetamin 10/325 tab ORAL PRN ×3 (02:11→10:27)
[2019-10-11 04:00] VITALS: BP 143/92
[2019-10-11] MEDS: HydrALAZINE 50mg tab ORAL SCH (05:45)
[2019-10-11 07:24] LABS: ALANINE AMINOTRANSFERASE 112 U/L (12-78); ALBUMIN 3.5 G/DL (3.4-5.0); ALKALINE PHOSPHATASE 68 U/L (46-116); ANION GAP 10 mmol/L (5-15); ASPARTATE AMINO TRANSFERASE 61 U/L (15-37); BILIRUBIN,TOTAL 0.2 MG/DL (0.2-1.0); BLOOD UREA NITROGEN 44 mg/dL (7-18); CALCIUM 9.1 MG/DL (8.5-10.1); CARBON DIOXIDE 28 MMOL/L (21-32); CHLORIDE 101 MMOL/L (98-107); CREATININE 1.3 MG/DL (0.55-1.30); POTASSIUM 3.6 MMOL/L (3.5-5.1); SODIUM 139 MMOL/L (136-145)
[2019-10-11 08:00] VITALS: BP 113/64
[2019-10-11] MEDS: Sucralfate 1gm tab ORAL SCH (08:18)
[2019-10-11] MEDS: Aspirin EC 81mg tab ORAL SCH (08:18)
[2019-10-11] MEDS: Docusate 100mg cap ORAL SCH (08:19)
[2019-10-11] MEDS: Heparin 5000 units/ml inj SUBQ SCH (08:39)
[2019-10-11 11:50] VITALS: BP 134/78
--- NOTE | 2019-10-11 13:00 | Progress Note ---
DATE: 10/10/2019 CARDIOLOGY PROGRESS NOTE SUBJECTIVE: The patient's CAT scan was not completed yesterday and rescheduled for today. Poor IV access was an issue. The patient's venous duplex scan was negative for DVT. The patient continues to have joint pains. Blood pressure remains labile. OBJECTIVE: VITAL SIGNS: Blood pressure 126/73 to 161/89, heart rate 60s, respiratory rate 18, and afebrile. LUNGS: Diminished breath sounds. No wheezing. CARDIAC: Regular rhythm and rate. Normal S1, S2. ABDOMEN: Soft. EXTREMITIES: No edema. LABORATORY AND DIAGNOSTIC DATA: White count 13.5. Sodium 140, potassium 4.3, bicarb 25, BUN 26, creatinine 1.1. Pro-natriuretic peptide slightly increased at 555. These labs are from October 08. CT angiogram of the chest reveals no definite evidence of pulmonary embolus and possible pulmonary edema. Abdominal ultrasound reveals dilated intrahepatic bile ducts with no change from prior studies with prior cholecystectomy. IMPRESSION: 1. COPD. 2. Acute and chronic diastolic congestive heart failure. 3. Labile hypertension. 4. Hypertensive urgency. 5. Hypertensive heart disease. 6. Fecal impaction. PLAN: 1. Additional diuresis. 2. Optimize blood pressure management. 3. Taper off steroids. 4. Discharge plan. Kapil Conroy M.D. DR: [place] JOB#: [id number] CC:
--- NOTE | 2019-10-11 20:45 | Discharge Summary ---
DATE OF ADMISSION: 10/05/2019 DATE OF DISCHARGE: 10/11/2019 ADMISSION DIAGNOSES: 1. Shortness of breath. 2. COPD exacerbation. 3. Fibromyalgia. 4. Hypertensive heart disease. 5. Abdominal pain. DISCHARGE DIAGNOSES: 1. Shortness of breath. 2. COPD exacerbation. 3. Fibromyalgia. 4. Hypertensive heart disease. 5. Abdominal pain. 6. Mild CHF exacerbation. HOSPITAL COURSE: Patient is a 63-year-old female who was admitted from the office with complaints of worsening shortness of breath. She had previously been diagnosed with COPD exacerbation, but had failed to respond to oral steroids and inhalers at home. She was admitted and started on intravenous Solu-Medrol. She received breathing treatments [id number]. She had gradual improvement in her shortness of breath although not back to her baseline. She underwent a venous duplex of her legs that showed no evidence of DVT. A CT pulmonary angio was negative for pulmonary embolism. There was evidence of mild fluid overload on her CAT scan and she was diuresed with intravenous Lasix. On discharge, her shortness of breath has significantly improved. She will be discharged home with home health and close outpatient followup. She will follow up in the office in 1 to 2 weeks. DISCHARGE MEDICATIONS: Please see discharge medication list for discharge medications. DIET: Cardiac diet. ACTIVITIES: Ad-rina. Damian Morton M.D. DR: JEFERSON JOB#: [id number] CC:
== END 2019-10-11 11:59 | disposition home or self-care (01) | DRG 190 ==
LOC: 2E 17:24 → 3E 10-08 16:53
DX: J44.1 Chronic obstructive pulmonary disease with (acute) exacerbation (principal); I50.33 Acute on chronic diastolic (congestive) heart failure; I24.9 Acute ischemic heart disease, unspecified; I11.0 Hypertensive heart disease with heart failure; I16.0 Hypertensive urgency; M79.7 Fibromyalgia; R10.9 Unspecified abdominal pain; H91.90 Unspecified hearing loss, unspecified ear; F17.200 Nicotine dependence, unspecified, uncomplicated; K56.41 Fecal impaction
CPT/HCPCS: 36415; 70450; 71045; 71250; 71275; 76700; 80053; 83735; 83880; 84484; 84550; 85007; 85025; 87086; 93005; 93970; 94640; 94664; J7620; J8499